=== PATIENT | male | born 1995 | race African-American/Black ===

== ENCOUNTER → 2022-08-20 10:57 | Outpatient (BNVA) | payer OTHER, SELFPAY | PROVIDERS: PCP Family Medicine; Visit Provider Nurse Practitioner Family | DX: R56.9 Unspecified convulsions (principal); F10.10 Alcohol abuse, uncomplicated; F32.A Depression, unspecified; F41.9 Anxiety disorder, unspecified | CPT/HCPCS: 99202 ==

== ENCOUNTER → 2022-10-30 10:34 | Outpatient (BNVA) | payer OTHER, SELFPAY | PROVIDERS: PCP Family Medicine; Visit Provider Nurse Practitioner Family | DX: R56.9 Unspecified convulsions (principal); F41.9 Anxiety disorder, unspecified; F32.A Depression, unspecified; F10.10 Alcohol abuse, uncomplicated | CPT/HCPCS: 99212 ==

== ENCOUNTER 2023-03-02 11:35 | Outpatient (AMB) | payer OTHER, SELFPAY ==
[2023-03-02 11:36] VITALS: BP 142/78; PULSE 68; O2SAT 97; BMI 24.3
--- NOTE | 2023-03-02 11:36 | A.OFFVIS_ITS ---
Intake Vital Signs 03/02/23 11:36 Height 5 ft 9 in Weight 164 lb 4 oz BMI 24.3 BP 142/78 H Blood Pressure Location Rt brachial Position Sitting Pulse 68 Pulse Source Pulse Oximeter Pulse Oximetry (%) 97 Oxygen Delivery Method Room Air Intake Visit Reasons: 4m follow up seizures Intake Note: Pt presents as a f/u for seizures. Pt states he had one seizure since last visit. Peoplesoft Taleo Manager Required: No Allergies No Known Allergies Allergy (Verified 03/02/23 11:41) Medication List - Last Reconciled 03/02/23 by DYLON Guillory aluminum chloride 20% (Drysol Dab-O-Matic) mL topical BEDTIME carbamazepine ER 200 mg PO BID 30 days glycopyrrolate 1 mg PO BID hydroxyzine HCl 25 mg PO TID HPI HPI Comments History of Present Illness Details 27-yr-old male presents for f/u visit. Pt denies any significant interval medical changes. Pt reports he ahs had 1 interval breakthrough seizure. He states this was likely triggered by a bout of taking hard liquor x's a few day and then stopping- in addition to his usual daily intake of 2 24oz bers per day. The seizure was a typical seizure. He is complaint w/ his Tegretol. Last tegretol level was low - , 2. CBC/CMP- wnl. PFSH Family History Father Lymphoma Mother Thyroid disease Social History (Updated 10/30/22 @ 10:39 by Savannah Wing CMA) Alcohol intake: current Alcohol intake frequency: a few times a week Patient Tobacco Use Status: Never used Tobacco Substance Use Type: Marijuana Review of Systems Const All systems reviewed & are unremarkable except as noted in HPI and below Physical Exam Vital Signs: Last Vital Signs Pulse 68 03/02/23 11:36 BP 142/78 H 03/02/23 11:36 Pulse Ox 97 03/02/23 11:36 Oxygen Delivery Method Room Air 03/02/23 11:36 BMI result Body Mass Index 24.3 Const General: cooperative and no acute distress Orientation/consciousness: patient oriented x3 HEENT Head: Yes normocephalic Resp Effort & Inspection: normal respiratory effort and able to speak in complete sentences Neuro General: patient oriented x3, gait normal and CN's II-XI intact bilaterally Cognition (Neuro): normal cognition Motor exam (neuro): 5/5 motor strength present throughout Psych Appearance: grossly normal Mental Status: mental status grossly normal Speech and movement: Normal speech and movement present Affect: normal affect Attitude: cooperative Thought process: Normal thought process present Thought content: Normal thought content present Insight: Good insight present (Psych) Judgement: Good judgement present (Psych) Assessment & Plan Assessment & Plan (1) Seizure: Code(s): R56.9 - Unspecified convulsions (2) Alcohol abuse: Code(s): F10.10 - Alcohol abuse, uncomplicated (3) Anxiety: Code(s): F41.9 - Anxiety disorder, unspecified (4) Depression: Code(s): F32.A - Depression, unspecified Plan Recheck CBC, CMP, tegretol level- upon review- consider increasing Tegretol. For now, continue Tegretol ER 200mg bid. Pt states he will f/u w/ referrals he already has to assist him w/ safe alcohol cessation. Future considerations- Consider [facility]eral [facility]. f/u in 4 months or sooner prn. Coding Level of Care Code Est Pt Level 4 (82293) Diagnoses Seizure R56.9 Alcohol abuse F10.10 Anxiety F41.9 Depression F32.A
== END 2023-03-02 12:11 | disposition home or self-care (01) ==
PROVIDERS: Visit Provider Nurse Practitioner Family
DX: R56.9 Unspecified convulsions (principal); F10.10 Alcohol abuse, uncomplicated; F41.9 Anxiety disorder, unspecified; F32.A Depression, unspecified
CPT/HCPCS: 99214

== ENCOUNTER → 2023-03-02 11:35 | Outpatient (BNVA) | payer OTHER, SELFPAY | PROVIDERS: Visit Provider Nurse Practitioner Family | DX: R56.9 Unspecified convulsions (principal); F32.A Depression, unspecified; F41.9 Anxiety disorder, unspecified | CPT/HCPCS: 99212 ==

== ENCOUNTER 2023-06-10 10:56 | Outpatient (AMB) | payer OTHER, SELFPAY ==
[2023-06-10 11:00] VITALS: BP 124/82; PULSE 66; O2SAT 97; BMI 24.0
--- NOTE | 2023-06-10 11:00 | MHC.OFFVIS ---
Intake Vital Signs 06/10/23 11:00 Height 5 ft 9 in Weight 162 lb 4 oz BMI 24.0 BP 124/82 Blood Pressure Location Rt brachial Position Sitting Pulse 66 Pulse Source Pulse Oximeter Pulse Oximetry (%) 97 Oxygen Delivery Method Room Air Intake Visit Reasons: 3m follow up seizures-LVM Intake Note: Patient presents for 3 month follow up. Patient states I've been having some jitters and tremors I stopped drinking about 3 weeks ago, I'm not sure if that has anything to do with it. Allergies No Known Allergies Allergy (Verified 06/10/23 11:03) Medication List - Last Reconciled 06/10/23 by DYLON Guillory aluminum chloride 20% (Drysol Dab-O-Matic) mL topical BEDTIME carbamazepine ER 200 mg PO BID 30 days glycopyrrolate 1 mg PO BID hydroxyzine HCl 25 mg PO TID HPI HPI Comments History of Present Illness Details 27-yr-old male presents for f/u visit. Pt reports he had an in-pt treatment for alcohol abuse. States while he was intoxicated, he told his mom that he was tired and did not beleive he could live that long. Pt's mother insisted that pt go to tx facility. Pt states he left the treatment center early as he did not care for the environment- states it was loud and people were fighting. He was started on Vivitrol which he states has been helpful, however once eh stopped drinking he did strt to feel more anxiety (which is what caused him to drink in the first palce). He states since being home, he has had one alcohol relapse after a , but notes that the alcohol had no enjoyable effect on him. He does have hydroxyxine and Naltrexone, which helps. He declined to f/u with [facility], but is open to us referring him today to an alternate support program. He denies any interval seizures. He is complaint w/ Tegretol but notes that when he was in-pt, he was given tegretol chewable tabs which he feels he digests better. PFSH Family History Father Lymphoma Mother Thyroid disease Social History Alcohol intake: current Alcohol intake frequency: a few times a week Patient Tobacco Use Status: Never used Tobacco Substance Use Type: Marijuana Review of Systems Const All systems reviewed & are unremarkable except as noted in HPI and below Physical Exam Vital Signs: Last Vital Signs Pulse 66 06/10/23 11:00 BP 124/82 06/10/23 11:00 Pulse Ox 97 06/10/23 11:00 Oxygen Delivery Method Room Air 06/10/23 11:00 BMI result Body Mass Index 24.0 Const General: cooperative and no acute distress Orientation/consciousness: patient oriented x3 HEENT Head: Yes normocephalic Resp Effort & Inspection: normal respiratory effort and able to speak in complete sentences Neuro General: patient oriented x3, gait normal and CN's II-XI intact bilaterally Cognition (Neuro): normal cognition Motor exam (neuro): 5/5 motor strength present throughout Psych Appearance: grossly normal Mental Status: mental status grossly normal Speech and movement: Normal speech and movement present Affect: normal affect Attitude: cooperative Thought process: Normal thought process present Thought content: Normal thought content present Insight: Good insight present (Psych) Judgement: Good judgement present (Psych) Assessment & Plan Assessment & Plan (1) Seizure: Code(s): R56.9 - Unspecified convulsions (2) Alcohol abuse: Code(s): F10.10 - Alcohol abuse, uncomplicated (3) Anxiety: Code(s): F41.9 - Anxiety disorder, unspecified (4) Depression: Code(s): F32.A - Depression, unspecified Plan Check CBC, CMP, tegretol level. Continue Tegretol, however will adjust from ER 200mg ER tablet bid to 2 100mg chewable tabs bid- per pt request. Encouraged continued alcohol cessation and establishing care w/ an addiction support program, which pt is agreeable to. Call placed to Dr Tyrone Jarvis- ? pt could be [facility]- however Dr Jarvis now appears to only offer in-pt services, will initiate referral to [facility] f/u in 4 months or sooner prn. Orders: Referrals Addiction Medicine Referral F10.10 - Alcohol abuse, uncomplicated, F32.A - Depression, unspecified, F41.9 - Anxiety disorder, unspecified, R56.9 - Unspecified convulsions Medications: New naltrexone microspheres ER (Vivitrol) 380 mg IM Q4W naltrexone 50 mg PO DAILY carbamazepine 200 mg (2 x 100 mg) PO Q12H 30 days 120 tabs 6RF Discontinued carbamazepine ER Discontinued Reason: Doctor's Order 200 mg PO BID 30 days 60 tabs 3RF Coding Level of Care Code Est Pt Level 4 (32738) Diagnoses Seizure R56.9 Alcohol abuse F10.10 Anxiety F41.9 Depression F32.A
== END 2023-06-10 11:34 | disposition home or self-care (01) ==
PROVIDERS: PCP Family Medicine; Visit Provider Nurse Practitioner Family
DX: R56.9 Unspecified convulsions (principal); F10.10 Alcohol abuse, uncomplicated; F41.9 Anxiety disorder, unspecified; F32.A Depression, unspecified
CPT/HCPCS: 99214

== ENCOUNTER → 2023-06-10 10:56 | Outpatient (BNVA) | payer OTHER, SELFPAY | PROVIDERS: PCP Family Medicine; Visit Provider Nurse Practitioner Family | DX: R56.9 Unspecified convulsions (principal); F10.10 Alcohol abuse, uncomplicated; F41.9 Anxiety disorder, unspecified; F32.A Depression, unspecified | CPT/HCPCS: 99212 ==

== ENCOUNTER 2023-07-21 09:54 | Outpatient (AMB) | payer OTHER, SELFPAY ==
--- NOTE | 2023-07-21 09:55 | A.OFFVIS_ITS ---
Intake Vital Signs 07/21/23 09:59 BP 126/82 Blood Pressure Location Lt radial Position Sitting Pulse 98 Pulse Source Pulse Oximeter Pulse Oximetry (%) 94 Oxygen Delivery Method Room Air Intake Visit Reasons: MAT Intake Intake Note: the patient presents for a mat intake Consumer Safety Inspector Required: No Allergies No Known Allergies Allergy (Verified 07/21/23 10:03) Medication List - Last Reconciled 07/21/23 by Gayle Hickman CNP aluminum chloride 20% (Drysol Dab-O-Matic) mL topical BEDTIME carbamazepine 200 mg (2 x 100 mg) PO Q12H 30 days glycopyrrolate 1 mg PO BID hydroxyzine HCl 25 mg PO TID naltrexone 50 mg PO DAILY naltrexone microspheres ER (Vivitrol) 380 mg IM Q4W HPI MAT Intake HPI Details Patient presents for intake and evaluation of alcohol use Reports he started drinking at age 18 and it became an issue at 23 Binging, then started to black out ED crisis eval at [facility] and subsequent admission to for a couple of weeks for suicidal ideation Received Vivitrol injection May 21 Last drink Wednesday (4 days ago) 2 russel boyle Treatment History: Vivitrol during admission History: -one admission to unit -PHP during childhood Family Hx: -some family members with AUD Medical History: -alcohol withdrawal seizures [address] recent seizure -Tegretol 200mg BID -Hydroxyzine 25mg TID PRN -Naltrexone 50mg QD Social: Lives with father, step mom and her family Identifies father and mother and siblings as supportive [facility] Family History Father Lymphoma Mother Thyroid disease Social History Alcohol intake: current Alcohol intake frequency: a few times a week Patient Tobacco Use Status: Never used Tobacco Substance Use Type: Marijuana Review of Systems Const Reports as per HPI Psych Reports anxiety and Reports anhedonia Physical Exam Vital Signs: Last Vital Signs Pulse 98 07/21/23 09:59 BP 126/82 07/21/23 09:59 Pulse Ox 94 07/21/23 09:59 Oxygen Delivery Method Room Air 07/21/23 09:59 Const General: cooperative, healthy appearing and anxious Nutritional Appearance: average body habitus Orientation/consciousness: patient oriented x3 Neuro General: patient oriented x3 Assessment & Plan Assessment & Plan (1) Alcohol use disorder, severe, dependence: Code(s): F10.20 - Alcohol dependence, uncomplicated Plan: * vivitrol reordered * continue with naltrexone for now * gabapentin trial Medications: New naltrexone 50 mg PO DAILY 30 tabs 3RF gabapentin 100 mg PO BID 20 caps 0RF naltrexone microspheres ER (Vivitrol) 380 mg IM Q4W 1 ea 5RF Coding Level of Care Code New Pt Level 4 (26800) Diagnoses Alcohol use disorder, severe, dependence F10.20
[2023-07-21 09:59] VITALS: BP 126/82; PULSE 98; O2SAT 94
== END 2023-07-21 11:10 | disposition home or self-care (01) ==
PROVIDERS: PCP Family Medicine; Visit Provider Nurse Practitioner Psychiatric/Mental Health
DX: F10.20 Alcohol dependence, uncomplicated (principal)
CPT/HCPCS: 99204

== ENCOUNTER → 2023-07-21 09:54 | Outpatient (BNVA) | payer OTHER, SELFPAY | PROVIDERS: PCP Family Medicine; Visit Provider Nurse Practitioner Psychiatric/Mental Health | DX: F10.20 Alcohol dependence, uncomplicated (principal) | CPT/HCPCS: 99202 ==

== ENCOUNTER 2023-08-03 10:29 | Outpatient (AMB) | payer OTHER, SELFPAY ==
--- NOTE | 2023-08-03 10:36 | MHC.AM.SUB ---
Intake Vital Signs 08/03/23 10:43 BP 114/70 Blood Pressure Location Lt radial Position Sitting Pulse 52 Pulse Source Pulse Oximeter Pulse Oximetry (%) 99 Oxygen Delivery Method Room Air Intake Visit Reasons: Mendy Inj Intake Note: the patient presents for a mendy inj Jr. Systems Administrator Required: No Allergies No Known Allergies Allergy (Verified 08/03/23 10:44) Do you need a note to return to daycare/school/sports/work: No HPI Mendy Inj HPI Details Jessica presents for AUD treatment follow up and Vivitrol injection Last drink Wednesday, 07/30-2 russel boyle Spreads drink out over several hours no questions related to injection as he has received it before COUNT [facility]CLUD[facility] Family History Father Lymphoma Mother Thyroid disease Social History Alcohol intake: current Alcohol intake frequency: a few times a week Patient Tobacco Use Status: Never used Tobacco Substance Use Type: Marijuana Review of Systems Const Reports as per HPI and Reports no additional complaints Physical Exam Vital Signs: Last Vital Signs Pulse 52 08/03/23 10:43 BP 114/70 08/03/23 10:43 Pulse Ox 99 08/03/23 10:43 Oxygen Delivery Method Room Air 08/03/23 10:43 Const General: cooperative, healthy appearing and anxious Nutritional Appearance: average body habitus Orientation/consciousness: patient oriented x3 Neuro General: patient oriented x3 Office Meds Vivitrol 380 mg intramuscular suspension,extended release Performing Provider: Gayle Hickman CNP Performing Location: [facility] Administered by: Lou Burch RN on 08/03/23 12:04 Dose Route Admin Location Dispensed Lot Number Expiration Date [facility] Washtub Worker Helper 380 mg IM LG 380 mg 2023-3020T 11/06/25 06997-158-77 Envia Lá Comments: Pt tolerated injection well. Educated on S/S of infection. Encouraged to call [facility] with questions/concerns. Assessment & Plan Assessment & Plan (1) Alcohol use disorder, severe, dependence: Code(s): F10.20 - Alcohol dependence, uncomplicated Plan: tolerated injection gabapentin to be inreased Orders: Orders AMB Naltrexone Injection Patient Supplied Today F10.20 - Alcohol dependence, uncomplicated Medications: Changed From gabapentin 100 mg PO BID 20 caps 0RF To gabapentin 100 mg PO TID 90 caps 0RF Coding Level of Care Code Est Pt Level 3 (28853) Diagnoses Alcohol use disorder, severe, dependence F10.20
[2023-08-03 10:43] VITALS: BP 114/70; PULSE 52; O2SAT 99
== END 2023-08-03 11:21 | disposition home or self-care (01) ==
PROVIDERS: PCP Family Medicine; Visit Provider Nurse Practitioner Psychiatric/Mental Health
DX: F10.20 Alcohol dependence, uncomplicated (principal)
CPT/HCPCS: 99213

== ENCOUNTER → 2023-08-03 10:29 | Outpatient (BNVA) | payer OTHER, SELFPAY | PROVIDERS: PCP Family Medicine; Visit Provider Nurse Practitioner Psychiatric/Mental Health | DX: F10.20 Alcohol dependence, uncomplicated (principal); Z79.899 Other long term (current) drug therapy | CPT/HCPCS: 96372; 99212; J2315 ==

== ENCOUNTER 2023-08-31 10:51 | Outpatient (AMB) | payer OTHER, SELFPAY ==
--- NOTE | 2023-08-31 10:54 | AM.OFFVISNUR ---
Intake Vital Signs 08/31/23 11:00 BP 118/70 Blood Pressure Location Lt radial Position Sitting Pulse 98 Pulse Source Pulse Oximeter Pulse Oximetry (%) 98 Oxygen Delivery Method Room Air Intake Visit Reasons: Mendy Inj Intake Note: the patient presents for a mendy inj Bus Transportation Manager Required: No Allergies No Known Allergies Allergy (Verified 08/31/23 11:00) Do you need a note to return to daycare/school/sports/work: No Nursing Note Patient to clinic today for Vivitrol injection. He is in good spirits, smiling, requested LG for injection, states his cravings have subsided and he denies any complications. Patient did tell me he would like to find a therapist or someone to talk to regarding gender dismorphia. I let him know I will get some referrals in and get numbers for him, he was happy about this. Patient understands to call [facility] with any questions or concerns. Office Meds Vivitrol 380 mg intramuscular suspension,extended release Performing Provider: Gayle Hickman CNP Performing Location: [facility] Administered by: Lisette Figueredo RN on 08/31/23 11:23 Dose Route Admin Location Dispensed Lot Number Expiration Date [facility]NOTE 2] Maintenance Aide 380 mg IM LG 380 mg 2023-1025T 12/06/25 [id number] Mpayy Coding Assessment & Plan Assessment & Plan Orders: Orders AMB Naltrexone Injection Patient Supplied Today F10.20 - Alcohol dependence, uncomplicated
[2023-08-31 11:00] VITALS: BP 118/70; PULSE 98; O2SAT 98
== END 2023-08-31 11:22 | disposition home or self-care (01) ==
PROVIDERS: PCP Family Medicine
DX: F10.20 Alcohol dependence, uncomplicated (principal)

== ENCOUNTER → 2023-08-31 10:51 | Outpatient (BNVA) | payer OTHER, SELFPAY | PROVIDERS: PCP Family Medicine | DX: F10.20 Alcohol dependence, uncomplicated (principal) | CPT/HCPCS: 96372; J2315 ==

== ENCOUNTER 2023-09-28 10:53 | Outpatient (AMB) | payer OTHER, SELFPAY ==
[2023-09-28 11:04] VITALS: BP 124/78; PULSE 95; O2SAT 96; BMI 23.9
--- NOTE | 2023-09-28 11:05 | AM.OFFVISNUR ---
Intake Vital Signs 09/28/23 11:04 Height 5 ft 9 in Weight 162 lb BMI 23.9 BP 124/78 Blood Pressure Location Lt radial Position Sitting Pulse 95 Pulse Source Pulse Oximeter Pulse Oximetry (%) 96 Oxygen Delivery Method Room Air Intake Visit Reasons: Mendy Inj Intake Note: the patient presents for a mendy inj Forestry Workers Required: No Allergies No Known Allergies Allergy (Verified 08/31/23 11:00) Do you need a note to return to daycare/school/sports/work: No Nursing Note Patient to office for vivitrol injection, he denies any signs, symptoms or complications from previous injection. States AUD recovery is going well , has not had cravings or drank. Patient was solemn, not smiling, very quiet. Stated that they are still struggling with gender identity, and recently was in their mothers wedding and was extremely anxious about the pictures, due to having to wear a tuxedo. Patient acknowledged having very dark thoughts, and not sleeping recently. They acknowledged safety and denied SI/HI, we talked about calling here and or going to the ER if these thoughts became unsafe and Jose A verbally agreed to doing this. They have an appointment on 09/29 with [facility] to meet with a counsilor, We agreed that I would call and check in periodically this week. Office Meds Vivitrol 380 mg intramuscular suspension,extended release Performing Provider: Gayle Hickman CNP Performing Location: [facility] Administered by: Lisette Figueredo RN on 09/28/23 11:16 Dose Route Admin Location Dispensed Lot Number Expiration Date [facility] Elevator Inspector 380 mg IM LG 380 mg [id number] 08/08/25 [id number] [employer] Comments: Patient tolerated injection well with no stated or noted side effects. Pt verbally agrees to calling [facility] with any questions or concerns. Coding Assessment & Plan Assessment & Plan Orders: Orders AMB Naltrexone Injection Patient Supplied (NC) 09/28/23 F10.20 - Alcohol dependence, uncomplicated
== END 2023-09-28 12:18 | disposition home or self-care (01) ==
PROVIDERS: PCP Family Medicine
DX: F10.20 Alcohol dependence, uncomplicated (principal)

== ENCOUNTER → 2023-09-28 10:53 | Outpatient (BNVA) | payer OTHER, SELFPAY | PROVIDERS: PCP Family Medicine | DX: F10.20 Alcohol dependence, uncomplicated (principal); Z79.899 Other long term (current) drug therapy | CPT/HCPCS: 96372; J2315 ==

== ENCOUNTER 2023-10-06 09:02 | Outpatient (AMB) | payer OTHER, SELFPAY ==
--- NOTE | 2023-10-06 09:03 | MHC.AM.SUB ---
Intake Vital Signs 10/06/23 09:10 BP 128/74 Blood Pressure Location Lt radial Position Sitting Pulse 76 Pulse Source Pulse Oximeter Pulse Oximetry (%) 95 Oxygen Delivery Method Room Air Intake Visit Reasons: MAT Intake Note: the patient presents for a mat visit Career Development Coordinator Required: No Allergies No Known Allergies Allergy (Verified 10/06/23 09:11) Do you need a note to return to daycare/school/sports/work: No HPI MAT HPI Details Patient presents for follow up He reports he has been drinking at least 1 4-loco nightly He denies experiencing withdrawal symptoms Mildy diaphoretic, reports he hasn't eaten today, no tremor noted Reports he has been drinking to quell his anxiety Experiencing some body dysmorphia, stating he does not feel like he is in the right body. He [facility] out to [facility] [place] back in March and May but had not heard back from anyone [facility] Family History Father Lymphoma Mother Thyroid disease Social History Alcohol intake: current Alcohol intake frequency: a few times a week Patient Tobacco Use Status: Never used Tobacco Substance Use Type: Marijuana Review of Systems Const Reports as per HPI Psych Reports anxiety, Reports change in appetite, Reports depression, Denies homicidal ideation and Denies suicidal ideation Physical Exam Vital Signs: Last Vital Signs Pulse 76 10/06/23 09:10 BP 128/74 10/06/23 09:10 Pulse Ox 95 10/06/23 09:10 Oxygen Delivery Method Room Air 10/06/23 09:10 Const General: cooperative, no acute distress and diaphoretic (mild) Resp Effort & Inspection: normal respiratory effort Psych Appearance: grossly normal Mental Status: mental status grossly normal Speech and movement: Normal speech and movement present Affect: Sad affect present and Anxious affect present Attitude: Guarded attititude/behavior present and Avoids eye contact (attititude/behavior) Assessment & Plan Assessment & Plan (1) Alcohol use disorder, severe, dependence: Code(s): F10.20 - Alcohol dependence, uncomplicated Plan: -Plan to obtain LACY to refer patient to [facility] -Discussed self care -Discussed harm reduction -Follow up 1 week Medications: Refilled gabapentin 100 mg PO TID 90 caps 0RF naltrexone 50 mg PO DAILY 30 tabs 3RF naltrexone 50 mg PO DAILY 30 tabs 3RF Coding Level of Care Code Est Pt Level 3 (80975) Diagnoses Alcohol use disorder, severe, dependence F10.20
[2023-10-06 09:10] VITALS: BP 128/74; PULSE 76; O2SAT 95
== END 2023-10-06 09:45 | disposition home or self-care (01) ==
PROVIDERS: PCP Family Medicine; Visit Provider Nurse Practitioner Family
DX: F10.20 Alcohol dependence, uncomplicated (principal)
CPT/HCPCS: 99213

== ENCOUNTER → 2023-10-06 09:02 | Outpatient (BNVA) | payer OTHER, SELFPAY | PROVIDERS: PCP Family Medicine; Visit Provider Nurse Practitioner Family | DX: F10.20 Alcohol dependence, uncomplicated (principal) | CPT/HCPCS: 99212 ==

== ENCOUNTER 2023-10-26 09:48 | Outpatient (AMB) | payer OTHER, SELFPAY ==
--- NOTE | 2023-10-26 09:51 | AM.OFFVISNUR ---
Intake Vital Signs 10/26/23 09:55 BP 102/78 Blood Pressure Location Lt radial Position Sitting Pulse 55 Pulse Source Pulse Oximeter Pulse Oximetry (%) 96 Oxygen Delivery Method Room Air Intake Visit Reasons: MAT visit/ Mendy Inj Intake Note: The patient presents for a mendy inj Director Of Retail Analytics Required: No Allergies No Known Allergies Allergy (Verified 10/26/23 09:56) Do you need a note to return to daycare/school/sports/work: No Nursing Note Patient to clinic for vivitrol injection, smiling today, acknowledges that he is binge drinking again, but states he is excited for an intake at a new therapist office soon. He wants to try a new form of MAT, we talked about oral meds and he is going to go home today and learn more , and let us know at his next visit what he found appealing. Office Meds Vivitrol 380 mg intramuscular suspension,extended release Performing Provider: Gayle Hickman CNP [facility] Administered by: Lisette Figueredo RN on 10/26/23 10:23 Dose Route Admin Location Dispensed Lot Number Expiration Date [facility] Route Driver Salesperson 380 mg IM LG 380 mg 2023-1029T 01/06/25 [id number] [email or web address] Coding Assessment & Plan Assessment & Plan Orders: Orders AMB Naltrexone Injection Patient Supplied (NC) Today F10.20 - Alcohol dependence, uncomplicated
[2023-10-26 09:55] VITALS: BP 102/78; PULSE 55; O2SAT 96
== END 2023-10-26 10:12 | disposition home or self-care (01) ==
PROVIDERS: PCP Family Medicine
DX: F10.20 Alcohol dependence, uncomplicated (principal)

== ENCOUNTER → 2023-10-26 09:48 | Outpatient (BNVA) | payer OTHER, SELFPAY | PROVIDERS: PCP Family Medicine; Visit Provider Nurse Practitioner Psychiatric/Mental Health | DX: F10.20 Alcohol dependence, uncomplicated (principal) | CPT/HCPCS: 96372; J2315 ==

== ENCOUNTER 2023-11-02 10:59 | Outpatient (AMB) | payer OTHER, SELFPAY ==
[2023-11-02 11:04] VITALS: PULSE 63; O2SAT 98; BMI 23.8
--- NOTE | 2023-11-02 11:04 | MHC.OFFVIS ---
Intake Vital Signs 11/02/23 11:04 Height 5 ft 9 in Weight 161 lb BMI 23.8 Pulse 63 Pulse Source Pulse Oximeter Pulse Oximetry (%) 98 Oxygen Delivery Method Room Air Intake Visit Reasons: 4m follow up seizures-Conf Intake Note: Patient presents for 4 month follow up seizures. patient doing pretty well no issues or concerns Allergies No Known Allergies Allergy (Verified 11/02/23 11:06) Medication List - Last Reconciled 11/02/23 by DYLON Guillory aluminum chloride 20% (Drysol Dab-O-Matic) mL topical BEDTIME carbamazepine 200 mg (2 x 100 mg) PO Q12H 30 days gabapentin 100 mg PO TID glycopyrrolate 1 mg PO BID hydroxyzine HCl 25 mg PO TID naltrexone 50 mg PO DAILY naltrexone microspheres ER (Vivitrol) 380 mg IM Q4W HPI HPI Comments History of Present Illness Details 28-yr-old male presents for f/u visit. Pt denies any significant interval medical changes. He started drinking alcohol again- 1-2 cans of 24oz beers per day. States he has been having anxiety as he does not feel comfortable in his body. When more anxious, the anxiety triggers a craving to drink alcohol. He states he has generalized anxiety that fluctuates. He was started on Gabapentin 100mg tid- but this has not helped much. He has tried many meds- including- clonidine, sertraline, bupropion. Overall these have not been effective, rarely has had adverse effect. He is compliant w/ Tegretol. 06/10/23, lab results notable for WBC 2.8 L PFSH Family History Father Lymphoma Mother Thyroid disease Social History Alcohol intake: current Alcohol intake frequency: a few times a week Patient Tobacco Use Status: Never used Tobacco Substance Use Type: Marijuana Physical Exam Vital Signs: Last Vital Signs Pulse 63 11/02/23 11:04 Pulse Ox 98 11/02/23 11:04 Oxygen Delivery Method Room Air 11/02/23 11:04 BMI result Body Mass Index 23.8 Const General: cooperative and no acute distress Orientation/consciousness: patient oriented x3 Resp Effort & Inspection: normal respiratory effort and able to speak in complete sentences Neuro General: patient oriented x3 Cranial nerves: Yes CN's II-XII intact bilaterally Cognition (Neuro): normal cognition Psych Appearance: grossly normal Mental Status: mental status grossly normal Speech and movement: Normal speech and movement present Affect: normal affect Attitude: cooperative Assessment & Plan Assessment & Plan (1) Seizure: Code(s): R56.9 - Unspecified convulsions (2) Alcohol use disorder, severe, dependence: Code(s): F10.20 - Alcohol dependence, uncomplicated (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 Recheck CBC, CMP, tegtretol level. Continue to f/u w/ [facility]. Reviewed that pt's seizures are often provoked d/t starting then stopping alcohol intake. On review of notes today, note is made of pt trying to establish care w/ [facility] for feelings of body dysmorphia. Pt endorses that this is a significant factor in exacerbating his anxiety and thus resuming alcohol intake. We will check to see if [facility] is taking new clients, and if so, will refer pt there. f/u in 4 months or sooner prn. Coding Level of Care Code Est Pt Level 4 (70979) Diagnoses Seizure R56.9 Alcohol use disorder, severe, dependence F10.20 Gender dysphoria in adult F64.0 Chronic benign neutropenia D70.8 Depression F32.A
== END 2023-11-02 11:56 | disposition home or self-care (01) ==
PROVIDERS: PCP Family Medicine; Visit Provider Nurse Practitioner Family
DX: R56.9 Unspecified convulsions (principal); F10.20 Alcohol dependence, uncomplicated; F64.0 Transsexualism; D70.8 Other neutropenia; F32.A Depression, unspecified
CPT/HCPCS: 99214

== ENCOUNTER → 2023-11-02 10:59 | Outpatient (BNVA) | payer OTHER, SELFPAY | PROVIDERS: PCP Family Medicine; Visit Provider Nurse Practitioner Family | DX: R56.9 Unspecified convulsions (principal); F10.20 Alcohol dependence, uncomplicated; F64.0 Transsexualism; D70.8 Other neutropenia; F32.A Depression, unspecified | CPT/HCPCS: 99212 ==

== ENCOUNTER 2023-11-03 10:59 | Outpatient (REF) | payer OTHER, SELFPAY ==
[2023-11-03 13:49] LABS: TSH reflex Free T4 0.52 uIU/mL (0.32-4.0)
== END 2023-11-03 11:00 | disposition home or self-care (01) ==
LOC: HO.LAB 10:59
PROVIDERS: PCP Family Medicine; Visit Provider Nurse Practitioner Family
DX: F41.9 Anxiety disorder, unspecified (principal); F10.20 Alcohol dependence, uncomplicated
CPT/HCPCS: 36415; 84443; 99212

== ENCOUNTER 2023-11-03 10:59 | Outpatient (AMB) | payer OTHER, SELFPAY ==
[2023-11-03 11:05] VITALS: PULSE 77; O2SAT 98
--- NOTE | 2023-11-03 11:05 | MHC.AM.SUB ---
Intake Vital Signs 11/03/23 11:05 Blood Pressure Location Lt brachial Position Sitting Pulse 77 Pulse Source Pulse Oximeter Pulse Oximetry (%) 98 Oxygen Delivery Method Room Air Intake Visit Reasons: MAT Allergies No Known Allergies Allergy (Verified 11/02/23 11:06) HPI MAT HPI Details Pt presents for AUD treatment and follow up Reports he is drinking 1 beer daily Feels anxiety is a big stressor/trigger for him He has been taking the gabapentin 200mg TID and has found it to be slightly helpful He reports his sleep has been poor He is unable to identify triggers for his anxiety PFSH Family History Father Lymphoma Mother Thyroid disease Social History Alcohol intake: current Alcohol intake frequency: a few times a week Patient Tobacco Use Status: Never used Tobacco Substance Use Type: Marijuana Review of Systems Const Reports as per HPI Physical Exam Vital Signs: Last Vital Signs Pulse 77 11/03/23 11:05 Pulse Ox 98 11/03/23 11:05 Oxygen Delivery Method Room Air 11/03/23 11:05 Const General: cooperative and healthy appearing Resp Effort & Inspection: normal respiratory effort Psych Appearance: grossly normal Mental Status: mental status grossly normal Speech and movement: Normal speech and movement present Affect: Sad affect present Attitude: cooperative Thought process: Normal thought process present Thought content: Normal thought content present, suicidality and no homicidality Assessment & Plan Assessment & Plan (1) Alcohol use disorder, severe, dependence: Code(s): F10.20 - Alcohol dependence, uncomplicated Plan: -Startg mirtazapine 7.5 qHS, med education provided. Instructed to d/c med immediately if he has SI or increase in SI thoughts, and to seek higher level of care -Follow up 2 weeks for med review -Check TSH to r/o underlying cause for anxiety Orders: Orders TSH reflex Free T4 Today F41.9 - Anxiety disorder, unspecified Medications: New mirtazapine 7.5 mg PO BEDTIME 7 tabs 0RF Changed From gabapentin 100 mg PO TID 90 caps 0RF To gabapentin 200 mg (2 x 100 mg) PO TID 180 caps 0RF Coding Level of Care Code Est Pt Level 3 (88339) Diagnoses Alcohol use disorder, severe, dependence F10.20
== END 2023-11-03 12:50 | disposition home or self-care (01) ==
PROVIDERS: PCP Family Medicine; Visit Provider Nurse Practitioner Family
DX: F10.20 Alcohol dependence, uncomplicated (principal)
CPT/HCPCS: 99213

== ENCOUNTER 2023-11-24 14:17 | Outpatient (AMB) | payer OTHER, SELFPAY ==
[2023-11-24 14:20] VITALS: BP 142/86; PULSE 98; O2SAT 99
--- NOTE | 2023-11-24 14:20 | MHC.AM.SUB ---
Vital Signs 11/24/23 14:20 BP 142/86 H Blood Pressure Location Lt brachial Position Sitting Pulse 98 Pulse Source Pulse Oximeter Pulse Oximetry (%) 99 Oxygen Delivery Method Room Air Intake Visit Reasons: MAT Allergies No Known Allergies Allergy (Verified 11/24/23 14:21) Medication List - Last Reconciled 11/24/23 by Gayle Hickman CNP carbamazepine 200 mg (2 x 100 mg) PO Q12H 30 days gabapentin 200 mg (2 x 100 mg) PO TID glycopyrrolate 1 mg PO BID mirtazapine 7.5 mg PO BEDTIME naltrexone 50 mg PO DAILY naltrexone microspheres ER (Vivitrol) 380 mg IM Q4W HPI HPI MAT: Details: Patient presents for follow up and med review for depression Seen by Savannah Mathias NP for AUD Started on Mirtazipine at the end of October, but was not able to fill it at pharmacy Gabapentin dose increased to 300mg BID--feels increase has been helpful, but onset of sx relief takes quite some time, but he feels very tired hours after taking it. 1st in AM and right before bed. Racing thoughts, heart palpitations Sleep is poor --frequent wakings Clonidine helpful for sleep in the past Anxiety is chronic daily--since age 17 drinking 1-2 per day Tightness in chest is most upsetting to him PFSH Family History Father Lymphoma Mother Thyroid disease Social History Alcohol intake: current Alcohol intake frequency: a few times a week Patient Tobacco Use Status: Never used Tobacco Substance Use Type: Marijuana Review of Systems Const Reports as per HPI Physical Exam Vital Signs: Last Vital Signs Pulse 98 11/24/23 14:20 BP 142/86 H 11/24/23 14:20 Pulse Ox 99 11/24/23 14:20 Oxygen Delivery Method Room Air 11/24/23 14:20 Const General: cooperative and healthy appearing Resp Effort & Inspection: normal respiratory effort Psych Appearance: grossly normal Mental Status: mental status grossly normal Speech and movement: Normal speech and movement present Affect: Sad affect present Attitude: cooperative Thought process: Normal thought process present Thought content: Normal thought content present Assessment & Plan Assessment & Plan (1) Alcohol use disorder, severe, dependence: Code(s): F10.20 - Alcohol dependence, uncomplicated Category: Medical Plan: -start mirtazipine -provided with breathing excercises to address acute anxiety -follow up 3 weeks
== END 2023-11-24 14:58 | disposition home or self-care (01) ==
PROVIDERS: PCP Family Medicine; Visit Provider Nurse Practitioner Psychiatric/Mental Health
DX: F10.20 Alcohol dependence, uncomplicated (principal)
CPT/HCPCS: 99214

== ENCOUNTER 2023-11-24 14:17 | Outpatient (AMB) | payer OTHER, SELFPAY ==
--- NOTE | 2023-11-24 14:21 | AM.OFFVISNUR ---
Intake Intake Visit Reasons: Mendy Inj Allergies No Known Allergies Allergy (Verified 11/24/23 14:21) Office Meds Vivitrol 380 mg intramuscular suspension,extended release Performing Provider: Gayle Hickman CNP Performing Location: [facility] Administered by: Lisette Figueredo RN on 11/24/23 14:56 Dose Route Admin Location Dispensed Lot Number Expiration Date [facility] Screening Technician 380 mg IM LG 380 mg 2023-1032T 03/08/26 19611-344-62 [employer] Coding Assessment & Plan Assessment & Plan Orders: Orders AMB Naltrexone Injection Patient Supplied (NC) Today F10.20 - Alcohol dependence, uncomplicated Medications: New Vivitrol ER (naltrexone microspheres) 380 mg IM ONCE 1 ea 0RF NS F10.20 - Alcohol dependence, uncomplicated
== END 2023-11-24 14:59 | disposition home or self-care (01) ==
PROVIDERS: PCP Family Medicine
DX: F10.20 Alcohol dependence, uncomplicated (principal)

== ENCOUNTER → 2023-11-24 14:17 | Outpatient (BNVA) | payer OTHER, SELFPAY | PROVIDERS: PCP Family Medicine | DX: F10.20 Alcohol dependence, uncomplicated (principal); Z79.899 Other long term (current) drug therapy | CPT/HCPCS: 96372; 99212; J2315 ==

== ENCOUNTER 2023-12-22 10:59 | Outpatient (AMB) | payer OTHER, SELFPAY ==
[2023-12-22 11:02] VITALS: BP 138/86; PULSE 71; O2SAT 96
--- NOTE | 2023-12-22 11:02 | A.OFFVISCC_ITS ---
Vital Signs 12/22/23 11:02 BP 138/86 Blood Pressure Location Lt brachial Position Sitting Pulse 71 Pulse Source Pulse Oximeter Pulse Oximetry (%) 96 Oxygen Delivery Method Room Air Intake Visit Reasons: MAT Allergies No Known Allergies Allergy (Verified 11/24/23 14:21) HPI HPI MAT: Details: Patient presents for follow up mirtazipine has been helpful to sleep taking it btwn 2-3am still waiting to hear from [facility] -encouraged to call them and follow up Regarding drinkin-2 natty tamar 4 locos last drink last cut gabapentin down to once per day PFSH Family History Father Lymphoma Mother Thyroid disease Social History Alcohol intake: current Alcohol intake frequency: a few times a week Patient Tobacco Use Status: Never used Tobacco Substance Use Type: Marijuana Physical Exam Vital Signs: Last Vital Signs Pulse 71 12/22/23 11:02 BP 138/86 12/22/23 11:02 Pulse Ox 96 12/22/23 11:02 Oxygen Delivery Method Room Air 12/22/23 11:02 Office Meds Vivitrol 380 mg intramuscular suspension,extended release Performing Provider: Gayle Hickman CNP Performing Location: [facility] Administered by: Lisette Figueredo RN on 12/22/23 11:24 Dose Route Admin Location Dispensed Lot Number Expiration Date [facility] Utility Gelatin Maker 380 mg IM LG 380 mg 2023-1033T 03/08/26 84288-471-51 Caregivers Assessment & Plan Assessment & Plan (1) Alcohol use disorder, severe, dependence: Code(s): F10.20 - Alcohol dependence, uncomplicated Category: Medical Plan: * tolerated injection (2) Anxiety: Code(s): F41.9 - Anxiety disorder, unspecified Category: Medical Plan: * start propranolol * start propranolol BID * plan to d/c gabapentin Orders: Orders AMB Naltrexone Injection Patient Supplied (NC) 12/22/23 F10.20 - Alcohol dependence, uncomplicated Medications: New propranolol 10 mg PO BID PRN 30 tabs 0RF anxiety Refilled mirtazapine 7.5 mg PO BEDTIME 30 tabs 0RF Nursing Note Patient in for injection today, no questions or concerns regarding previous injection. Pt agrees to call [facility] with any comments or concerns. Injected into LG with no complications.
== END 2023-12-22 11:22 | disposition home or self-care (01) ==
PROVIDERS: PCP Family Medicine; Visit Provider Nurse Practitioner Psychiatric/Mental Health
DX: F10.20 Alcohol dependence, uncomplicated (principal); F41.9 Anxiety disorder, unspecified
CPT/HCPCS: 99213

== ENCOUNTER → 2023-12-22 10:59 | Outpatient (BNVA) | payer OTHER, SELFPAY | PROVIDERS: PCP Family Medicine; Visit Provider Nurse Practitioner Psychiatric/Mental Health | DX: F10.20 Alcohol dependence, uncomplicated (principal); F41.9 Anxiety disorder, unspecified; Z79.899 Other long term (current) drug therapy | CPT/HCPCS: 96372; 99212; J2315 ==

== ENCOUNTER 2024-01-20 11:15 | Outpatient (AMB) | payer OTHER, SELFPAY ==
--- NOTE | 2024-01-20 11:26 | MHC.AM.SUB ---
Vital Signs 01/20/24 11:29 BP 136/76 Blood Pressure Location Lt brachial Position Sitting Pulse 88 Pulse Source Pulse Oximeter Pulse Oximetry (%) 97 Oxygen Delivery Method Room Air Intake Visit Reasons: Meet w provider/ Mendy Inj Allergies No Known Allergies Allergy (Verified 11/24/23 14:21) HPI HPI Meet w provider/ Emndy Inj: Details: Patient presents for vivitrol injection Reports he is still struggling with his anxiety, cannot identify any triggers Has been drinking 3 russel jean daily Feels as though when he is due to get his next injection, his cravings grow stronger Sleep has been good per his report He reports [employer] has called him but he has no appointments yet HPI Comments Details: Patient presents for MAT visit PFSH Family History Father Lymphoma Mother Thyroid disease Social History Alcohol intake: current Alcohol intake frequency: a few times a week Patient Tobacco Use Status: Never used Tobacco Substance Use Type: Marijuana Review of Systems Const Reports as per HPI Physical Exam Const General: cooperative and no acute distress Resp Effort & Inspection: normal respiratory effort and able to speak in complete sentences Psych Appearance: grossly normal Mental Status: mental status grossly normal Speech and movement: Normal speech and movement present Affect: normal affect Attitude: cooperative Thought process: Normal thought process present Office Meds Vivitrol 380 mg intramuscular suspension,extended release Performing Provider: Savannah Mathias NP Performing Location: [facility] Administered by: Savananh Mathias NP on 01/20/24 11:37 Dose Route Admin Location Dispensed Lot Number Expiration Date [facility] Pasta Maker 380 mg IM RG 380 mg 2023-3027T 01/06/26 11747-210-37 [employer] Comments: Pt tolerating injection well. No signs or symptoms of infection to previous site. Assessment & Plan Assessment & Plan (1) Alcohol use disorder, severe, dependence: Code(s): F10.20 - Alcohol dependence, uncomplicated Category: Medical Plan: -Propanolol refilled per pt request -Naltrexone refilled, encouraged patient to take 1/2 tab daily in the week leading up to his next injection -Follow up 4 weeks Orders: Orders AMB Naltrexone Injection Patient Supplied (NC) Today F10.20 - Alcohol dependence, uncomplicated Medications: New Vivitrol ER (naltrexone microspheres) 380 mg IM ONCE 1 ea 0RF NS F10.20 - Alcohol dependence, uncomplicated Refilled naltrexone 50 mg PO DAILY 30 tabs 0RF propranolol 10 mg PO BID PRN 60 tabs 0RF anxiety
[2024-01-20 11:29] VITALS: BP 136/76; PULSE 88; O2SAT 97
== END 2024-01-20 11:41 | disposition home or self-care (01) ==
PROVIDERS: PCP Family Medicine; Visit Provider Nurse Practitioner Family
DX: F10.20 Alcohol dependence, uncomplicated (principal)
CPT/HCPCS: 99213

== ENCOUNTER → 2024-01-20 11:15 | Outpatient (BNVA) | payer OTHER, SELFPAY | PROVIDERS: PCP Family Medicine; Visit Provider Nurse Practitioner Family | DX: F10.20 Alcohol dependence, uncomplicated (principal); Z79.899 Other long term (current) drug therapy | CPT/HCPCS: 96372; 99212; J2315 ==

== ENCOUNTER 2024-02-22 10:59 | Outpatient (AMB) | payer OTHER, SELFPAY ==
--- NOTE | 2024-02-22 10:59 | AM.OFFVISNUR ---
Intake Visit Reasons: Vivitrol Allergies No Known Allergies Allergy (Verified 11/24/23 14:21) Nursing Note Patient to clinic today for Vivitrol injection. Alert and oriented x4, denies any complications with previous injection, injection today given per orders in the RG. Will follow up in 4 weeks with RN and provider. Patient was in much better spirits today, big smile, still has yet to complete intake at [facility] but states he will keep trying. Office Meds Vivitrol 380 mg intramuscular suspension,extended release Performing Provider: Gayle Hickman CNP Performing Location: [facility] Administered by: Lisette Figueredo RN on 02/22/24 11:30 Dose Route Admin Location Dispensed Lot Number Expiration Date [facility] Medical Instrument Technician 380 mg IM RG 380 mg 2023-3033T 03/08/26 94532-487-91 [employer] Assessment & Plan Assessment & Plan Orders: Orders AMB Naltrexone Injection Patient Supplied (NC) Today F10.20 - Alcohol dependence, uncomplicated Medications: New Vivitrol ER (naltrexone microspheres) 380 mg IM ONCE 1 ea 0RF NS F10.20 - Alcohol dependence, uncomplicated
== END 2024-02-22 11:24 | disposition home or self-care (01) ==
PROVIDERS: PCP Family Medicine
DX: F10.20 Alcohol dependence, uncomplicated (principal)

== ENCOUNTER → 2024-02-22 10:59 | Outpatient (BNVA) | payer OTHER, SELFPAY | PROVIDERS: PCP Family Medicine | DX: F10.20 Alcohol dependence, uncomplicated (principal); Z79.899 Other long term (current) drug therapy | CPT/HCPCS: 96372; J2315 ==

== ENCOUNTER 2024-03-22 11:40 | Outpatient (AMB) | payer OTHER, SELFPAY ==
--- NOTE | 2024-03-22 11:45 | MHC.AM.SUB ---
Intake Visit Reasons: MAT/Vivitrol Allergies No Known Allergies Allergy (Verified 11/24/23 14:21) HPI HPI MAT/Vivitrol: Details: Patient presents for follow up and injection when he has more than 3 of the Natty daddys he has nausea Happens when he goes to his sisters house on weekends discussed strategies for addressing this pina in light of GI sx found propranolol helpful, would like to increase dose PFSH Family History Father Lymphoma Mother Thyroid disease Social History Alcohol intake: current Alcohol intake frequency: a few times a week Patient Tobacco Use Status: Never used Tobacco Substance Use Type: Marijuana Review of Systems Const Reports as per HPI and Reports no additional complaints Physical Exam Const General: cooperative and no acute distress Psych Appearance: grossly normal Mental Status: mental status grossly normal Speech and movement: Normal speech and movement present Affect: normal affect Attitude: cooperative Thought process: Normal thought process present Office Meds Vivitrol 380 mg intramuscular suspension,extended release Performing Provider: Gyale Hickman CNP Performing Location: [facility] Administered by: Lisette Figueredo RN on 03/22/24 14:29 Dose Route Admin Location Dispensed Lot Number Expiration Date [facility] Proof Load Mechanic 380 mg IM LG 380 mg 2024-1010T 07/08/26 03141-739-27 [employer] Assessment & Plan Assessment & Plan (1) Alcohol use disorder, severe, dependence: Code(s): F10.20 - Alcohol dependence, uncomplicated Category: Medical Plan: tolerated injection follow up 4 weeks propranolol increased to 20mg BID Orders: Orders AMB Naltrexone Injection Patient Supplied (NC) 03/22/24 F10.20 - Alcohol dependence, uncomplicated Medications: New propranolol 20 mg PO BID 180 tabs 0RF 90 days Discontinued gabapentin Discontinued Reason: Doctor's Order 200 mg (2 x 100 mg) PO TID 180 caps 0RF propranolol Discontinued Reason: Doctor's Order 10 mg PO BID PRN 60 tabs 0RF anxiety
== END 2024-03-22 14:02 | disposition home or self-care (01) ==
PROVIDERS: PCP Family Medicine; Visit Provider Nurse Practitioner Psychiatric/Mental Health
DX: F10.20 Alcohol dependence, uncomplicated (principal)
CPT/HCPCS: 99214

== ENCOUNTER → 2024-03-22 11:40 | Outpatient (BNVA) | payer OTHER, SELFPAY | PROVIDERS: PCP Family Medicine; Visit Provider Nurse Practitioner Psychiatric/Mental Health | DX: F10.20 Alcohol dependence, uncomplicated (principal); Z51.81 Encounter for therapeutic drug level monitoring; Z79.899 Other long term (current) drug therapy | CPT/HCPCS: 96372; 99212; J2315 ==

== ENCOUNTER 2024-04-04 11:31 | Outpatient (AMB) | payer OTHER, SELFPAY ==
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
[2024-04-04 11:50] VITALS: BP 122/78; PULSE 80; O2SAT 97; BMI 22.7
== END 2024-04-04 12:42 | disposition home or self-care (01) ==
PROVIDERS: PCP Family Medicine; Visit Provider Nurse Practitioner Family
DX: R56.9 Unspecified convulsions (principal); F10.20 Alcohol dependence, uncomplicated; F64.0 Transsexualism
CPT/HCPCS: 99214

== ENCOUNTER → 2024-04-04 11:31 | Outpatient (BNVA) | payer OTHER, SELFPAY | PROVIDERS: PCP Family Medicine; Visit Provider Nurse Practitioner Family | DX: G40.909 Epilepsy, unspecified, not intractable, without status epilepticus (principal); F10.20 Alcohol dependence, uncomplicated; F64.0 Transsexualism | CPT/HCPCS: 99212 ==

== ENCOUNTER 2024-04-04 12:46 | Outpatient (REF) | payer OTHER, SELFPAY ==
[2024-04-04 17:37] LABS: MANUAL DIFF FLAG NO
[2024-04-04 18:12] LABS: Basophils Percent Auto 0.9 % (0-2); Eosinophils Absolute Auto 0.2 X10*3/uL (0.0-0.4); Eosinophils Percent Auto 6.6 % (0-4); Hematocrit 41.3 % (42.0-52.0); Hemoglobin 14.4 g/dl (14.0-18.0); Imm Gran Abs Auto 0.01 X10*3/uL (0.00-0.03); Imm Gran Pct Auto 0.3 % (0.0-0.4); Lymphocytes Absolute Auto 1.1 X10*3/uL (1.2-4.9); Lymphocytes Percent Auto 32.2 % (20-40); Mean Corpuscular HGB Conc 34.9 g/dl (31.0-36.0); Mean Corpuscular Hemoglobin 32.8 pg (27.0-33.0); Mean Corpuscular Volume 94.1 fL (80.0-98.0); Mean Platelet Volume 10.7 fL (9.4-12.4); Monocytes Absolute Auto 0.5 X10*3/uL (0.1-1.2); Monocytes Percent Auto 13.8 % (2-11); Neutrophils Absolute Auto 1.6 x10*3/uL (2.0-8.3); Neutrophils Percent Auto 46.2 % (45-73); Platelet Count 267 X10*3/uL (160-400); Red Blood Count 4.39 X10*6/uL (4.60-5.80); Red Cell Distribution Width 11.7 % (11.0-16.0); White Blood Count 3.5 X10*3/uL (4.8-10.8)
[2024-04-04 18:19] LABS: Alanine Aminotransferase 24 U/L (0-40); Alkaline Phosphatase 62 U/L (39-117); Anion Gap 15 (12-20); Aspartate Amino Transferase 35 U/L (5-37); Blood Urea Nitrogen 14 mg/dL (9-16); Calcium 9.9 mg/dL (8.4-10.2); Carbon Dioxide 24 mmol/L (22-29); Chloride 103 mmol/L (96-108); Estimated Glomerular Filt Rate > 60; Glucose Random 104 mg/dL (60-115); Potassium 4.4 mmol/L (3.3-5.1); Sodium 138 mmol/L (135-145)
[2024-04-04 19:53] LABS: Carbamazepine Tegretol < 2.0 mcg/mL (5.0-12.0)
== END 2024-04-04 12:47 | disposition home or self-care (01) ==
LOC: HO.HKASLDS 12:46
PROVIDERS: Visit Provider Nurse Practitioner Family
DX: G40.909 Epilepsy, unspecified, not intractable, without status epilepticus (principal)
CPT/HCPCS: 36415; 80053; 80156; 85025

== ENCOUNTER 2024-04-21 10:54 | Outpatient (AMB) | payer OTHER, SELFPAY ==
--- NOTE | 2024-04-21 11:30 | MHC.AM.SUB ---
Vital Signs 04/21/24 13:57 BP 120/78 Blood Pressure Location Rt brachial Position Sitting Pulse 58 Pulse Source Pulse Oximeter Intake Visit Reasons: MAT/Vivitrol Allergies No Known Allergies Allergy (Verified 04/04/24 11:51) HPI HPI MAT/Vivitrol: Details: Patient presents for follow up and vivitrol injection Reports no change in alcohol intake. Anxiety improving with propranolol increase --he takes full dose at once, not BID and finds it helpful sharing struggles with facial hair and how unhappy he is that it is growing in briefly discussed hesitation related to seeking supports around this --he identified anxiety as the main issue and barrier to calling or following up [facility] Family History Father Lymphoma Mother Thyroid disease Social History Alcohol intake: current Alcohol intake frequency: a few times a week Patient Tobacco Use Status: Never used Tobacco Substance Use Type: Marijuana Review of Systems Const Reports as per HPI Physical Exam Vital Signs: Last Vital Signs Pulse 58 04/21/24 13:57 BP 120/78 04/21/24 13:57 Const General: cooperative and no acute distress Psych Appearance: grossly normal Mental Status: mental status grossly normal Speech and movement: Normal speech and movement present Affect: normal affect Attitude: cooperative Thought process: Normal thought process present Office Meds Vivitrol 380 mg intramuscular suspension,extended release Performing Provider: Gayle Hickman CNP Performing Location: [facility] Administered by: Noemí Ventura on 04/21/24 11:31 Dose Route Admin Location Dispensed Lot Number Expiration Date [facility] Marker Machine 380 mg IM RG 380 mg 2024-1019T 09/08/26 16466-177-56 [employer] Comments: Pt tolerated injection well. Educated on signs/symptoms of infection. Encouraged to call the [facility] with any questions or concerns. Assessment & Plan Assessment & Plan (1) Alcohol use disorder, severe, dependence: Code(s): F10.20 - Alcohol dependence, uncomplicated Category: Medical Plan: tolerated injection follow up 4 weeks continue propranolol risk reduction discussion Orders: Orders AMB Naltrexone Injection Patient Supplied (NC) Today F10.20 - Alcohol dependence, uncomplicated
[2024-04-21 13:57] VITALS: BP 120/78; PULSE 58
== END 2024-04-21 11:32 | disposition home or self-care (01) ==
PROVIDERS: PCP Family Medicine; Visit Provider Nurse Practitioner Psychiatric/Mental Health
DX: F10.20 Alcohol dependence, uncomplicated (principal)
CPT/HCPCS: 99214

== ENCOUNTER → 2024-04-21 10:54 | Outpatient (BNVA) | payer OTHER, SELFPAY | PROVIDERS: PCP Family Medicine | DX: F10.20 Alcohol dependence, uncomplicated (principal); Z51.81 Encounter for therapeutic drug level monitoring; Z79.899 Other long term (current) drug therapy | CPT/HCPCS: 96372; 99212; J2315 ==

== ENCOUNTER 2024-05-19 10:59 | Outpatient (AMB) | payer OTHER, SELFPAY ==
--- NOTE | 2024-05-19 11:08 | AM.OFFVISNUR ---
Intake Visit Reasons: Vivitrol Allergies No Known Allergies Allergy (Verified 04/04/24 11:51) Nursing Note Patient presents for Vivitrol injection. Current dose 380 mg. No issues with previous injection.? Denies withdrawal sx prior to next injection.? Last appt with provider April 2024. Next appt with Provider should be July 2024.? Next injection due in 4 weeks Dose due 380 mg. 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 Pt reports this past month has been a little depressing due to growing more facial hair which is unwanted. Pt reports currently still on the waitlist for gender-affirming care in [place]. Pt reports currently drinking 1-2 24 ounce beers daily (8% alcohol). Pt reports they are typically consumed in the afternoon due to beginning to feel withdrawal symptoms (increased anxiety, heart racing ). When asked how pt feels about alochol use, pt states I'm not quite sure. Pt encouraged to call the [facility] if needed at any time for support or questions. Denies questions or concerns at this time. Office Meds Vivitrol 380 mg intramuscular suspension,extended release Performing Provider: Gayle Hickman CNP Performing Location: [facility] Administered by: Noemí Ventura on 05/19/24 11:10 Dose Route Admin Location Dispensed Lot Number Expiration Date [facility] [employer] 380 mg IM LG 380 mg [id number] 12/06/26 03329-731-94 [employer] Comments: Pt tolerated injection well. Educated on signs/symptoms of infection, encouraged to call the [facility] with questions or concerns. Assessment & Plan Assessment & Plan Orders: Orders AMB Naltrexone Injection Patient Supplied (NC) Today F10.20 - Alcohol dependence, uncomplicated
== END 2024-05-19 13:07 | disposition home or self-care (01) ==
PROVIDERS: PCP Family Medicine
DX: F10.20 Alcohol dependence, uncomplicated (principal)

== ENCOUNTER → 2024-05-19 10:59 | Outpatient (BNVA) | payer OTHER, SELFPAY | PROVIDERS: PCP Family Medicine | DX: F10.20 Alcohol dependence, uncomplicated (principal); Z79.899 Other long term (current) drug therapy | CPT/HCPCS: 96372; J2315 ==

== ENCOUNTER 2024-06-27 10:53 | Outpatient (AMB) | payer OTHER, SELFPAY ==
--- NOTE | 2024-06-27 11:37 | AM.OFFVISNUR ---
Intake Visit Reasons: vivitrol Allergies No Known Allergies Allergy (Verified 04/04/24 11:51) Nursing Note Patient Presents for vivitrol Injection. Current Dose 380mg. Given in the with LG no noted or stated complications. Denies any issues with previous injection. Denies symptoms, and denies any break through cravings. Will follow up with RN in 4 weeks for injection. Will need to see provider for check in July . Office Meds Vivitrol 380 mg intramuscular suspension,extended release Performing Provider: Gayle Hickman CNP Performing Location: [facility] Administered by: Lisette Figueredo RN on 06/29/24 11:53 Dose Route Admin Location Dispensed Lot Number Expiration Date [facility] Automobile Upholsterer Apprentice 380 mg IM LG 380 mg 2024-1021T 11/06/26 26840-546-10 [employer] Assessment & Plan Assessment & Plan Orders: Orders AMB Naltrexone Injection Patient Supplied (NC) 06/27/24 F10.20 - Alcohol dependence, uncomplicated Medications: New Vivitrol ER (naltrexone microspheres) 380 mg IM ONCE 1 ea 0RF NS F10.20 - Alcohol dependence, uncomplicated
--- OUTSIDE RECORDS SUMMARY | 2024-06-30 13:28 | XMS_ITS | Continuity of Care Document ---
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 Active Insomnia Confirmed Active Episodic mood disorder Confirmed Active Vital Signs Most recent to oldest [Reference Range]: 1 2 Height 190 cm (12/17/23 2:49 PM) 190 cm (12/17/23 1:55 PM) Weight 90.9 kg (12/17/23 2:49 PM) 90.9 kg (12/17/23 1:55 PM) Oxygen Saturation [94-100 %] 98 % (12/17/23 2:49 PM) 98 % (12/17/23 1:55 PM) Pulse Rate [55-90 bpm] 73 bpm (12/17/23 2:49 PM) 87 bpm (12/17/23 1:55 PM) Body Mass Index [18.5-24.99 kg/m2] 25.18 kg/m2 *H* (12/17/23 2:49 PM) Blood Pressure [90-138/55-84 mm Hg] 129/ 72mm Hg (12/17/23 2:49 PM) 122/49mm Hg (12/17/23 1:55 PM) Respiratory Rate [16-30 br/min] 18 br/mi n (12/17/23 2:49 PM) 16 br/min (12/17/23 1:55 PM) Temperature [96.8-100.4 DegF] 98.8 DegF (12/17/23 1:55 PM) Mode of Delivery (Oxygen) Room air (12/17/23 2:49 PM) Room air (12/17/23 1:55 PM) Blood pressure sites Arm, left (12/17/23 2:49 PM) Arm, left (12/17/23 1:55 PM) Temperature Route Oral (12/17/23 1:55 PM) Dry Weight 90.9 kg (12/17/23 2:49 PM) 90.9 kg (12/17/23 1:55 PM) Weight Obtained Via Standing scale (12/17/23 1:55 PM) Dry Weight Obtained Via Standing scale (12/17/23 1:55 PM) Social History Social History Type Response Smoking Status Never smoker; Tobacc o user in household: No entered on: 05/03/15 Sex Patient Care team information Care Team Personnel Name: Vianey Ritchie MA Position: [facility] RN Member Role: Primary Care Nurse Name: Not on Staff, PCP Position: [facility] Physician (General Medicine) Member Role: PCP Care Team Related Persons Name: RAOARIELLA Address: [address] [place] [address] Name: RAO LAURI Address: home [address] [place] [address]
--- OUTSIDE RECORDS SUMMARY | 2024-06-30 13:28 | XMS_ITS | Continuity of Care Document ---
Author Organization [facility] Address [address] [place] [address]- Care Team Providers Care Steel Checker Name Role Phone Not on Staff, PCP Primary Care Physician Unavail able Encounter [facility] Date(s): 12/09/23 - 12/09/[address] [address]- Discharge Disposition: A-D/C Home Attending Physician: Geoff Cheung MD Admitting Physician: Geoff Cheung MD Referring Physician: Not on Staff, Referring MD Allergies, Adverse Reactions, Alerts No Known Allergies Medications No Known Medications Problem List Condition Confirmation Course Effective Dates Status H ealth Status Informant Attention Deficit Disorder of 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 Reports swelling and pain with ambulation.; Reason: Pain; Clinical Question(s): Fracture COMPARISON: None. FINDINGS: No evidence of acute or healing fracture or bone lesion. Intact ankle mortise and talar dome. No arthritic changes. Lateral soft tissue swelling. IMPRESSION: No osseous or joint space abnormality. Lateral soft tissue swelling consistent with contusion or sprain. WSN: [id number] Ordering Physician: Ramiro De La Garza Dictated By: Damian Beebe MD Dictated Date/Time: 12/09/23 6:09 pm Reviewed By: Damian Beebe MD Signed By: Damian Beebe MD Signed Date/Time: 12/09/23 6:09 pm Transcribed By: AKUA Transcribed Date/Time: 12/09/23 6:09 pm Vital Signs Most recent to oldest [Reference Range]: 1 2 Height 190 cm (12/09/23 5:21 PM) Weight 89.8 kg (12/09/23 5:21 PM) Oxygen Saturation [94-100 %] 98 % (12/09/23 5:21 PM) 98 % (12/09/23 5:21 PM) Pulse Rate [55-90 bpm] 83 bpm (12/09/23 5:21 PM) 68 bpm (12/09/23 5:21 PM) Blood Pressure [90-138/55-84 mm Hg] 130/ 69mm Hg (12/09/23 5:21 PM) Respiratory Rate [16-30 br/min] 18 br/mi n (12/09/23 5:21 PM) Temperature [96.8-100.4 DegF] 98.0 DegF (12/09/23 5:21 PM) Mode of Delivery (Oxygen) Room air (12/09/23 5:21 PM) Room air (12/09/23 5:21 PM) Blood pressure sites Arm, left (12/09/23 5:21 PM) Temperature Route Temporal (12/09/23 5:21 PM) Dry Weight 89.8 kg (12/09/23 5:21 PM) Weight Obtained Via Standing scale (12/09/23 5:21 PM) Dry Weight Obtained Via Standing scale (12/09/23 5:21 PM) Social History Social History Type Response Smoking Status Never smoker; Tobacc o user in household: No entered on: 05/03/15 Sex Note * Mary Alfonso: PERFORM, SIGN, VERIFY Event Display: Patient Education Handout Authored Date: [id number] * Mary Alfonso: PERFORM Event Display: Patient Education Leaflets Authored Date: [id number] Ankle Sprain (Adult) ?? [id number] Ankle Sprain (Adult) An ankle sprain is a stretching or tearing of the ligaments that hold the ankle joint together. There are no broken bones. An ankle sprain is a common injury for both children and adults. It happens when the ankle turns, twists, or rolls in an awkward way. This can be caused by a sports injury. Or it can happen from doing something as simple as stepping on an uneven surface. Ligaments are made of tough connective tissue. Normally, ligaments stretch a certain amount and then go back to their normal place. A sprain happens when a ligament is forced to stretch more than thenormal amount. A severe sprain can actually tear the ligaments. If you have a severe sprain, you may have felt or heard something like a pop when you were injured. Ankle sprains are given a grade depending on whether they are mild, moderate, or severe: ??? Grade 1 sprain. A mild sprain with minor stretching and damage to the ligament. ??? Grade 2 sprain. A moderate sprain where the ligament is partly torn. ??? Grade 3 sprain. The most severe kind of sprain. The ligament is completely torn. Most sprains??take about 4 to 6 weeks to heal. A severe sprain can take several months to recover. Your healthcare provider may order X-rays to be sure you don???t have a fracture, or broken bone. The injured area will feel sore. Swelling and pain may make it hard to walk. You may need crutches if walking is painful. Or your provider may have you use a cast boot or air splint. This will dependon the grade of ankle sprain that you have. Home care ??? For a Grade 1 sprain, use RICE (rest, ice, compression, and elevation): ??? Rest your ankle. Don???t walk on it. ??? Ice should be used right away to help control swelling. Place an ice pack overthe injured area for 20 minutes. Do this every??3 to 6??hours??for the first??24 to 48 hours.??Keepusing ice packs to ease pain and swelling as needed. To make an ice pack, put ice cubes in a plastic??bag that seals at the top. Wrap the bag in a??clean, thin??towel or cloth. Never put ice or an ice pack directly on the skin. The ice pack can be put right on the cast, bandage, or splint. As the ice melts, be careful that the cast, bandage, or splint doesn???t get wet. If you have a boot, open it to apply an ice pack, unless told otherwise by your provider. ??? Compression devices help to control swelling. They also keep the ankle from moving and support your injured ankle. These devices include dressings, elastic bandages, and wraps. ??? Elevate or raise your ankle above the level of yourheart when sitting or lying down. This is very important for the first 48 hours. ??? Follow the RICE guidelines for a Grade 2 sprain. This type of sprain will take longer to heal. Your provider may have you wear a splint, cast, or brace to keep your ankle from moving. ?If you have a Grade 3 sprain, you are at risk for long-term ankle instability. In rare cases, surgery may be needed. Your provider may have you wear a short leg cast or a walking boot for 2 to 3 weeks. ??? After 48 hours, it may be helpful to apply heat??for 20 minutes several times a day. You can do this with a heating pad or warm compress. Or you may want to go back and forth between using ice and heat. Never apply heat directly to the skin. Always wrap the heating pad or warm compress in a clean, thin towel or cloth. ??? You may use??[id number] pain medicine??(NSAIDS or nonsteroidal anti-inflammatory drugs) to control pain, unless another pain medicine was prescribed. Talk with your provider before using these medicines if you have chronic liver or kidney disease, stomach ulcer or gastrointestinal bleeding, or if you take a blood thinner. ??? Follow any rehabilitation exercises your provider gives you.These can help you be more flexible and improve your balance and coordination. This is helpful in preventing long-term ankle problems. Prevention To help prevent ankle sprains, it???s important to have good strength, balance, and flexibility. Besure to: ??? Always warm up before you exercise or do something very active ??? Be careful when walking or running on uneven or cracked surfaces ??? Wear shoes that are in good condition and fit well??? Listen to your body???s signals to slow down when you are in pain or tired ?? Follow-up care Any X-rays you had today don???t show any broken bones, breaks, or fractures. Sometimes fractures don???t show up on the first X-ray. Bruises and sprains can sometimes hurt as much as a fracture. These injuries can take time to heal completely. If your symptoms don???t get better or they get worse,talk with your healthcare provider. You may need a repeat X-ray. Follow up with your healthcare provider, or as advised. Check for any warning signs listed below. ?? When to get medical advice Call your healthcare provider right away??if any of these occur: ??? Fever of 100.4 F (38 C) or higher, or as directed by your provider ??? Chills ??? The injury doesn???t seem to be healing ??? The swelling comes back ??? The cast or splint has a bad smell ??? The plaster cast or splint gets wet or soft ??? The fiberglass cast or splint gets wet and doesn't dry for 24 hours ??? Pain or swelling gets worse, or redness appears ??? Your toes become cold, blue, numb, or tingly ??? The skin is discolored (looks blue, purple, or pimentel), has blisters, or is irritated ??? You re-injure your ankle ?? Last Reviewed Date: 2021 ?? [id number] [employer]. All rights reserved. This information is not intended as a substitute for professional medical care. Always follow your healthcare professional's instructions. ?? Patient Care team information Care Team Personnel Name: Vianey Ritchie MA Position: [facility] RN Member Role: Primary Care Nurse Name: Not on Staff, PCP Position: [facility] Physician (General Medicine) Member Role: PCP Care Team Related Persons Name: RAOARIELLA Address: home [address] [place] [address] Name: LAURI YEH Address: [address] [place] [address]
== END 2024-06-27 11:18 | disposition home or self-care (01) ==
LOC: HO.HCC 10:53
PROVIDERS: PCP Family Medicine; Visit Provider Nurse Practitioner Psychiatric/Mental Health
DX: F10.20 Alcohol dependence, uncomplicated (principal)

== ENCOUNTER → 2024-06-27 10:53 | Outpatient (BNVA) | payer OTHER, SELFPAY | PROVIDERS: PCP Family Medicine; Visit Provider Nurse Practitioner Psychiatric/Mental Health | DX: F10.20 Alcohol dependence, uncomplicated (principal) | CPT/HCPCS: 96372; J2315 ==

== ENCOUNTER 2024-11-20 11:15 | Outpatient (AMB) | payer OTHER, SELFPAY ==
--- NOTE | 2024-11-20 11:21 | MHC.OFFVIS ---
Vital Signs 11/20/24 11:26 Height 5 ft 9 in Weight 159 lb BMI 23.5 Pulse 72 Pulse Source Pulse Oximeter Pulse Oximetry (%) 97 Oxygen Delivery Method Room Air Intake Visit Reasons: MAT restart Allergies No Known Allergies Allergy (Verified 11/20/24 11:26) HPI HPI MAT restart: Details: He has been doing well on Vivitrol. He has not been drinking alcohol. Luer lock kept turning on syringe. PFSH Family History Father Lymphoma Mother Thyroid disease Social History Alcohol intake: current Alcohol intake frequency: a few times a week Patient Tobacco Use Status: Never used Tobacco Substance Use Type: Marijuana Review of Systems Const All systems reviewed & are unremarkable except as noted in HPI and below Physical Exam Vital Signs: Last Vital Signs Pulse 72 11/20/24 11:26 Pulse Ox 97 11/20/24 11:26 Oxygen Delivery Method Room Air 11/20/24 11:26 BMI result Body Mass Index 23.5 Const General: cooperative Office Meds Vivitrol 380 mg intramuscular suspension,extended release Performing Provider: Tuyet Diana MD Performing Location: [facility] Administered by: Tuyet Diana MD on 11/20/24 14:13 Dose Route Admin Location Dispensed Lot Number Expiration Date [facility] [employer] 380 mg IM left buttock 380 mg [id number] 02/05/27 25927-139-16 [employer] Results AMB 14 Panel Urine Drug Screen Urine Marijuana (THC) Positive Last Edit by Vinny Osorio CMA on 11/20/24 11:32 Urine Cocaine Negative Last Edit by Vinny Osorio CMA on 11/20/24 11:32 Urine Morphine Negative Last Edit by Vinny Osorio CMA on 11/20/24 11:32 Urine Methamphetamine Negative Last Edit by Vinny Osorio CMA on 11/20/24 11:32 Urine Amphetamine Negative Last Edit by Vinny Osorio CMA on 11/20/24 11:32 Urine Benzodiazepine Negative Last Edit by Vinny Osorio CMA on 11/20/24 11:32 Urine Barbiturates Negative Last Edit by Vinny Osorio CMA on 11/20/24 11:32 Urine Methadone Negative Last Edit by Vinny Osorio CMA on 11/20/24 11:32 Urine Buprenorphine Negative Last Edit by Vinny Osorio CMA on 11/20/24 11:32 Urine Tricyclic Antidepressant Negative Last Edit by Vinny Osorio CMA on 11/20/24 11:32 Urine MDMA Negative Last Edit by Vinny Osorio CMA on 11/20/24 11:32 Urine Oxycodone Negative Last Edit by Vinny Osorio CMA on 11/20/24 11:32 Urine Phencyclidine Negative Last Edit by Vinny Osorio CMA on 11/20/24 11:32 Urine Propoxyphene Negative Last Edit by Vinny Osorio CMA on 11/20/24 11:32 Results Reviewed Results Reviewed: Laboratory Last Values POC Urine Buprenorphine Negative 11/20/24 11:27 POC Urine Morphine Negative 11/20/24 11:27 POC Urine Oxycodone Negative 11/20/24 11:27 POC Urine Methadone Negative 11/20/24 11:27 POC Urine Propoxyphene Negative 11/20/24 11:27 POC Urine Barbiturates Negative 11/20/24 11:27 POC U Tricyclic Antidpr Negative 11/20/24 11:27 POC Urine PCP Negative 11/20/24 11:27 POC Ur Amphetamines Negative 11/20/24 11:27 POC Ur Methamphetamine Negative 11/20/24 11:27 POC Urine MDMA Negative 11/20/24 11:27 POC Ur Benzodiazepine Negative 11/20/24 11:27 POC Urine Cocaine Negative 11/20/24 11:27 POC Ur Marijuana (THC) Positive 11/20/24 11:27 Assessment & Plan Assessment & Plan (1) Alcohol use disorder, severe, dependence: Code(s): F10.20 - Alcohol dependence, uncomplicated Category: Medical Plan: He is doing well Plan Continue Vivitrol. See in one month Orders: Orders AMB 14 Panel Urine Drug Screen Today Z51.81 - Encounter for therapeutic drug level monitoring AMB Naltrexone Injection - Practice Supplied Today F10.20 - Alcohol dependence, uncomplicated Medications: New naltrexone microspheres ER (Vivitrol) 380 mg IM Q4W 1 ea 5RF 30 days Refilled propranolol 20 mg PO BID 180 tabs 0RF 90 days Coding Level of Care Code Est Pt Level 3 (75824) Diagnoses Alcohol use disorder, severe, dependence F10.20
[2024-11-20 11:26] VITALS: PULSE 72; O2SAT 97; BMI 23.5
--- OUTSIDE RECORDS SUMMARY | 2024-11-20 13:19 | XMS_ITS | Clinical Summary ---
Author Organization [facility] it Address [address] [place] [address] Care Team Providers Care Farmworker Bulbs Name Role Phone Talita Alfredo MD Primary Care Pr ovider Allergies No known active allergies Medications hydrOXYzine HCL (ATARAX) 25 mg tablet Take 1 Tablet by mouth every 8 hours as needed for Anxiety. 03/10/2023 Active carBAMazepine XR (TEGretol XR) 200 mg 12 hr tablet Take 1 Tablet by mouth 2 Times Daily. 11/14/2022 Active naltrexone (DEPADE) 50 mg tablet Take 1 Tablet by mouth daily. 12/03/2022 Active glycopyrrolate (ROBINUL) 2 mg tablet Take 1 Tablet by mouth 2 times daily. 12/03/2022 Active Active Problems Problem Noted Date Diagnosed Date Mood swings 08/14/2024 Overview (08/14/2024): and mild depression Dr.Richard Jenkins- Rx with josy 07-22-10: Crisis Services at [facility] after verbal threats to harm self 12: zoloft 07-21-13: on zoloft 07-23- [place] list; Dr. Urbina at [place]- therapist did not take insurance -17: sertraline and clonidine- no therapist- has recommendations but hasn't called ADHD (attention deficit hyperactivity disorder) 08/14/2024 Overview (08/14/2024): Dr.Richard Jenkins- Rx with focalin 09-02-10; partial hosp a month ago- sees Wallace Balbuena in [facility] for therapy and med with Brittanie ding at [facility]. 12-11-11: new therapist since yesterday; med provider Brittanie Ding at [place] 07-21-13: same med provider- no therapist 07-23- no meds for 2 weeks and per pt doing well 2-17: med provider does not feel he has this Last Assessment & Plan: Continue seeing med provider and look into counseling. Hyperlipidemia 03/10/2023 Seizure disorder ([facility] V24, [facility] V28) 09/2022 Passive suicidal ideations 12/03/2022 Hyperhidrosis 12/03/2022 Abnormal EKG 06/04/2022 Tachycardia 06/04/2022 Perceptual disturbances and seizures concurrent with and due to alcohol withdrawal ([facility] V24, [facility] V28) 05/18/2022 Overview (08/14/2024): Patient reported. Last ED visit 04/17/2022, [facility]. Not likely seizure at that time, referred to neurology Marijuana use 05/18/2022 Depression 05/18/2022 Anxiety 05/18/2022 Chronic alcohol abuse 01/24/2020 Chronic benign neutropenia ([facility] V24) 015 Overview (08/14/2024): Referred to hematology -15.seen 08/24, benign neutropenia- often seen in Americans- most often TNC above 1000 and neuts may rise with infection- These pts do not suffer from recurrent infection; F/U PRN Chronic abdominal pain 05/29/2015 Overview (08/14/2024): 05/23 - labs negative, KUB: mild constipation; miralax prescribed and recheck with PCP in one month -17: not often; some constipation Immunizations Name Administration Dates Next Due DTaP (Infanrix) 6wks to less than 7yo ,12/21/1998,1997,10/21,1997 [id number]-[id number] (Pentacel) 2mo to less than 5yo 10/21/1998,1997,1997,08/23 H1N1 Inj Preservative Free 08/30/2009,06/14/2009 HPV 9-valent (Gardisil) 9yo to less than 46yo 09/30/2016,01/28/2016,09/25/2015,07/25 Hepatitis B Pediatric (Enger ix B; Recombivax HB) to less than 20 yo 03/23/1998,1997,1997 IPV Inactivated polio (Ipol) 6wks and older 2001,06/23/1998,1997,08/23 Influenza Quadravalent, MDCK , 0.5ml, preservative free (Flucelvax) 6mo and older 05/21/2022 Influenza trivalent, 0.5mL, preservative free (Fluarix; FluLaval; Fluzone) ages 6mo and older (Afluria) 3 years and older 07/25/2015,07/09/2015,07/24/2014,07/21,08/19/2012,2012,08/13/2011 ,04/21/2011,06/24/2010,08/30/2009,05/09,07/07/2007,07/06/2005 MMR, measles mumps and rubel la Live (Priorix; M-M-R II) 12mo and older 2001,10/21/1998 Meningococcal MCV4P 07/24/2014,08/30/2009 Pneumococcal Conjugate Vacci ne, 7 Valent 04/23/2000,03/17/2000 Td Tetanus diptheria (Tdvax) 7yo and older 03/08/2007 Tdap Tetanus diptheria acell ular pertussis (Boostrix; Adacel) 7yo and older 12/11/2011,07/20/2008 Varicella live (Varivax) 12m o and older 07/20/2008,06/23/1998 Surgical History Surgery Date Site/Laterality Comments TYMPANOSTOMY TUBE PLACEMENT 09/09 PROCEDURE: HISTORICAL PE TUBES Medical History Medical History Date Comments Unspecified otitis media MULTIPLE DX:Unsp ecified otitis media Pneumonia, organism unspecified(486) 12/1997 DX:Pneumonia, organism unspecified(486) Unspecified family circumstance 06/2004 DX:Unspecified family circumstance; COMMENT: DSS ; DCF inquiry 04-02-10- as of 09-02-10- no involvement ( mo had been in program with nervous breakdown); inquiry 04-19 Aortic valve disorders 1`` DX:Aortic valve disorders; COMMENT: Mom not sure of any details- not a current problem (noted at PE11-07) Historical Medical DX DX:ADHD; C OMMENT: Dr.Richard Jenkins- Rx with focalin Mood swings DX:Mood swings; COMMENT: and mild depression Dr.Richard Jenkins- Rx with abilify Fracture of thumb, closed 08/12/2011 DX:Fra cture of thumb, closed; COMMENT: right - Dr. Ferrell Family circumstance 11/2011 DX:Family ci rcumstance; COMMENT: DCF active Neutropenia ([facility]HCC V24) 07/02/2015 DX:Jeremy tropenia (HCC); COMMENT: Referred to hematology 11-15 Chronic benign neutropenia ( CMS/HCC V24) 07/02/2015 DX:Chronic benign neutropeni a (HCC); COMMENT: Referred to hematology 11-15.seen 08/24, benign neutropenia- often seen in Americans- most oftern TNC above 1000 and neuts may rise with infection- These pts do not suffer from recurrent infection Alcohol abuse 01/24/2020 DX:Alcohol abuse Perceptual disturbances and seizures concurrent with and due to alcohol withdrawal (CMS/HCC V24, CMS/HCC V28) 05/18/2022 DX:Perceptual di sturbances and seizures concurrent with and due to alcohol withdrawal ([facility]); COMMENT: Patient reported. Last ED visit 04/17/2022. Not likely seizure at that time, referred to neurology Marijuana use 05/18/2022 DX:Marijuana use Chronic alcohol abuse 01/24/2020 DX:Chronic alcohol abuse Anxiety 05/18/2022 DX:Anxiety Depression 05/18/2022 DX:Depression Generalized anxiety disorder 06/04/2022 DX: Generalized anxiety disorder Alcohol withdrawal seizure ( CMS/HCC V24, CMS/HCC V28) DX:Alcohol withdrawal seizur e ([facility]) Severe anxiety DX:Severe anxiet y Ringworm DX:Ringworm Family History Medical History Relation Name Comments Bipolar disorder Mother sister Diabetes Paternal Grandmother Breast cancer Neg Hx Colon cancer Neg Hx Relation Name Status Comments Father Alive 1963 Mother Alive ASTON- 1965 Paternal Grandmother Sister 1 Alive ANTOINETTE Sister 2 Alive ROSELINE Social History Tobacco Use Types Packs/Day Years Used Date Smoking Tobacco: Some Days Smokeless Tobacco: Never Alcohol Use Standard Drinks/Week Comments Yes 14 (1 standard drink = 0.6 oz pu re alcohol) Sex and Gender Information Value Date Recorded Sex Assigned at Not on file Legal Sex Male 8:40 AM EST Gender Identity Not on file Sexual Orientation Not on file Obstetrics History Last Filed Vital Signs Vital Sign Reading Time Taken Comments Blood Pressure 112/64 07/12/2023 9:46 AM EST Pulse 100 07/12/2023 9:46 AM EST Temperature - - Respiratory Rate - - Oxygen Saturation - - Inhaled Oxygen Concentration - - Weight 74.4 kg (164 lb) 07/12/2023 9:46 AM EST Height 175.3 cm (5' 9 ) 07/12/2023 9:46 AM EST Body Mass Index 24.22 07/12/2023 9:46 AM EST Plan of Treatment Health Maintenance Due Date Last Done Comments Pneumococcal Vaccine: Pediatrics (0 to 5 Years) and At-Risk Patients (6 to 64 Years) (2 of 3 - PPSV23) 06/18/2000 04/23/2000, 03/17/2000 COVID-19 Vaccine (3 - Moderna risk series) 07/12/2021 06/14/2021, 12/25/2020 DTaP,Tdap,and Td Vaccines (8 - Td or Tdap) 12/10/2021 12/11/2011, 07/20/2008, 03/08/2007, Additional history exists Depression Screening 07/18/2022 HIV Screening 07/18/2022 Hepatitis C Screening 07/18/2022 Social Influencers of Health Screening 07/18/2022 Influenza Vaccine (Season Ended) 2025 05/21/2022, 07/25/2015, 07/09/2015, Additional history exists Cholesterol Screening (Lipid Panel) 03/10/2028 03/10/2023 Hepatitis B Vaccines Completed 03/23/1998, 1997, 1997 HIB Vaccines Completed 10/21/1998, 12/07, 1997, Additional history exists IPV Vaccines Completed 2001, 10/07, 06/23/1998, Additional history exists MMR Vaccines Completed 2001, 10/21/1998 Varicella Vaccines Completed 07/20/2008, 06/23/1998 Meningococcal ACWY Vaccine Completed 07/24/2014, HPV Vaccines Completed 09/30/2016, 01/08, 09/25/2015, Additional history exists Hepatitis A Vaccines Aged Out No long er eligible based on patient's age to complete this topic Meningococcal B Vaccine Aged Out No l onger eligible based on patient's age to complete this topic RSV Immunization Patients Under 20 months Aged Out No longer eligible based on patient's age to complete this topic Procedures Procedure Name Priority Date/Time Associated Diagnosis Comments LIPID PANEL Routine 03/10/2023 from Last 3 Months or Most Recently Relevant to Health Maintenance Results * (ABNORMAL) Lipid panel (03/10/2023) LDL/HDL Ratio 2 0 - 4 Triglycerides 164(A) 0 - 150 mg/dL Cholesterol 224(A) 0 - 200 mg/dL HDL 100 >=40 mg/dL LDL Cholesterol 92 0 - 100 mg/dL Blood Venous blood specimen / Unknown Historical Provider LAB BLOOD ORDERABLES Najma l Result from Last 3 Months or Most Recently Relevant to Health Maintenance Care Teams Farmworker Bulbs Relationship Specialty Start Date End Date Talita Alfredo MD [address] [facility], [place] PCP - General Internal Medicine 05/21/22
== END 2024-11-20 12:44 | disposition home or self-care (01) ==
PROVIDERS: PCP Family Medicine; Visit Provider Internal Medicine
DX: F10.20 Alcohol dependence, uncomplicated (principal); Z51.81 Encounter for therapeutic drug level monitoring
CPT/HCPCS: 99213

== ENCOUNTER → 2024-11-20 11:15 | Outpatient (BNVA) | payer OTHER, SELFPAY | PROVIDERS: PCP Family Medicine; Visit Provider Internal Medicine | DX: Z51.81 Encounter for therapeutic drug level monitoring (principal); F10.20 Alcohol dependence, uncomplicated; Z79.899 Other long term (current) drug therapy | CPT/HCPCS: 80307; 96372; 99212; J2315 ==

== ENCOUNTER 2024-12-18 10:43 | Outpatient (AMB) | payer OTHER, SELFPAY ==
--- NOTE | 2024-12-18 11:14 | MHC.AM.SUB ---
Vital Signs 12/18/24 11:15 BP 126/78 Blood Pressure Location Rt brachial Pulse 76 Pulse Source Pulse Oximeter Pulse Oximetry (%) 97 Oxygen Delivery Method Room Air Intake Visit Reasons: Vivitrol Injection Allergies No Known Allergies Allergy (Verified 11/20/24 11:26) HPI HPI Vivitrol Injection: Details: He is doing well. He is not drinking. Review of Systems Const All systems reviewed & are unremarkable except as noted in HPI and below Physical Exam Vital Signs: Last Vital Signs Pulse 76 12/18/24 11:15 BP 126/78 12/18/24 11:15 Pulse Ox 97 12/18/24 11:15 Oxygen Delivery Method Room Air 12/18/24 11:15 Const General: cooperative Office Meds Vivitrol 380 mg intramuscular suspension,extended release Performing Provider: Tuyet Diana MD Performing Location: [facility] Administered by: Tuyet Diana MD on 12/18/24 16:15 Dose Route Admin Location Dispensed Lot Number Expiration Date [facility] Propellant Charge Loader 380 mg IM 380 mg [id number] 05/08/27 15247-209-80 [employer] PFSH Family History Father Lymphoma Mother Thyroid disease Social History Alcohol intake: current Alcohol intake frequency: a few times a week Patient Tobacco Use Status: Never used Tobacco Substance Use Type: Marijuana Assessment & Plan Assessment & Plan (1) Alcohol use disorder, severe, dependence: Comment: He is doing well Code(s): F10.20 - Alcohol dependence, uncomplicated Category: Medical Plan: Continue Vivitrol. See in one month. Counseling prn need. Orders: Orders HIV Ab/Ag Today F10.20 - Alcohol dependence, uncomplicated Syphilis Screen Today F10.20 - Alcohol dependence, uncomplicated T Spot TB Today F10.20 - Alcohol dependence, uncomplicated Hepatitis B Surface Antigen Today F10.20 - Alcohol dependence, uncomplicated Hepatitis C Antibody Today F10.20 - Alcohol dependence, uncomplicated Hepatitis B Surface Ab Qnt Today F10.20 - Alcohol dependence, uncomplicated Hepatitis A IgG Today F10.20 - Alcohol dependence, uncomplicated AMB Naltrexone Injection - Practice Supplied Today F10.20 - Alcohol dependence, uncomplicated Medications: New Vivitrol ER (naltrexone microspheres) 380 mg IM ONCE 1 ea 0RF NS F10.20 - Alcohol dependence, uncomplicated
[2024-12-18 11:15] VITALS: BP 126/78; PULSE 76; O2SAT 97
== END 2024-12-18 11:34 | disposition home or self-care (01) ==
LOC: HO.HCC 10:44
PROVIDERS: PCP Family Medicine; Visit Provider Internal Medicine
DX: F10.20 Alcohol dependence, uncomplicated (principal)
CPT/HCPCS: 99213

== ENCOUNTER → 2024-12-18 10:43 | Outpatient (BNVA) | payer OTHER, SELFPAY | PROVIDERS: PCP Family Medicine; Visit Provider Internal Medicine | DX: F10.20 Alcohol dependence, uncomplicated (principal); Z79.899 Other long term (current) drug therapy | CPT/HCPCS: 96372; 99212; J2315 ==

== ENCOUNTER → 2025-01-15 11:15 | Outpatient (BNVA) | payer OTHER, SELFPAY | PROVIDERS: PCP Family Medicine | DX: Z13.89 Encounter for screening for other disorder (principal) ==

== ENCOUNTER 2025-02-12 09:57 | Outpatient (AMB) | payer OTHER, SELFPAY ==
--- NOTE | 2025-02-12 10:09 | AM.OFFVISNUR ---
Vital Signs 02/12/25 10:12 Height 5 ft 9 in Weight 47.174 kg BMI 15.4 BP 114/68 Blood Pressure Location Lt brachial Pulse 104 H Pulse Source Pulse Oximeter Pulse Oximetry (%) 99 Oxygen Delivery Method Room Air Intake Visit Reasons: Injection Allergies No Known Allergies Allergy (Verified 02/12/25 10:13) Nursing Note Jose A is here for his four week Vivitrol injection and check in. Jose A is alert and oriented x4 and presents with appropriate affect. Jose A still reports anxiety though he feels that it is a little better than it was; he reports anxiety as the main symptom for drinking, not cravings. Jose A states that he has been utilizing mirtazapine during the day for anxiety, though he reports taking the prescribed dose. Jose A said that his current alcohol intake is reduced from three to two beers daily. Jose A was introduced Ana EMPLOYEE WELFARE MANAGER, in hopes of building a therapeutic rapport for future help. Jose A was given a copy of the Vivitrol wallet card print out and the Vivitrol bracelet and chain for injection identification Office Meds Vivitrol 380 mg intramuscular suspension,extended release Performing Provider: Tuyet Diana MD Performing Location: [facility] [place] Administered by: Nicci Rossi RN on 02/12/25 11:09 Dose Route Admin Location Dispensed Lot Number Expiration Date [facility] Reference Test Clerk 380 mg IM RG 380 mg [id number] 06/08/27 63416-350-69 [employer] Total Dispensed Waste 380 mg 0 % Comments: Pt here for 4 week Vivitrol 380 mg injection. Pt denies any concern with previous injections and tolerated injection well. Educated on signs and symptoms of infection and encouraged to call [facility] with any related questions or concerns, pt verbalized understanding. Medication guide given per [facility] protocol. Follow-up scheduled in 4 weeks for next injection. Assessment & Plan Assessment & Plan Orders: Orders AMB Naltrexone Injection Patient Supplied (NC) Today F10.20 - Alcohol dependence, uncomplicated Medications: Discontinued naltrexone microspheres ER (Vivitrol) Discontinued Reason: Patient Completed Course 380 mg IM Q4W 1 ea 0RF Coding
[2025-02-12 10:12] VITALS: BP 114/68; PULSE 104; O2SAT 99; BMI 15.4
--- OUTSIDE RECORDS SUMMARY | 2025-02-12 10:33 | XMS_ITS | Clinical Summary ---
Author Organization [facility] it Address [address] [place] [address] Care Team Providers Care Fresh Work Inspector Name Role Phone Talita Alfredo MD Primary [...] Rx with josy 07-22-10: Crisis Services at [facility] after verbal threats to harm self 12: zoloft 13: on zoloft 07-23- [place] list; Dr. Urbina at [place]- therapist did not take insurance -17: sertraline and clonidine- no therapist- has recommendations but hasn't called ADHD (attention deficit hyperactivity disorder) 08/14/2024 Overview (08/14/2024): Dr.Richard Jenkins- Rx with focalin 09-02-10; partial hosp a month ago- sees Wallace Balbuena in [facility] for therapy and med with Brittanie ding at [facility]. 12-11-11: new therapist since yesterday; med provider Brittanie Ding at [place] 07-21-13: same med provider- no therapist 07-23- no meds for 2 weeks and per pt doing well 2-17: med provider does not feel he has this Last Assessment & Plan: Continue seeing med provider and look into counseling. Hyperlipidemia 03/10/2023 Seizure disorder ([facility] V24, [facility] V28) 09/2022 Passive suicidal ideations 12/03/2022 Hyperhidrosis 12/03/2022 Abnormal EKG 06/04/2022 Tachycardia 06/04/2022 Perceptual disturbances and seizures concurrent with and due to alcohol withdrawal ([facility] V24, [facility] V28) 05/18/2022 Overview (08/14/2024): Patient reported. Last ED visit 04/17/2022, [facility]. Not likely seizure at that time, referred to neurology Marijuana use 05/18/2022 Depression 05/18/2022 Anxiety 05/18/2022 Chronic alcohol abuse 01/24/2020 Chronic benign neutropenia ([facility] V24) 015 Overview (08/14/2024): Referred to hematology [...] (Infanrix) 6wks to less than 7yo ,12/21/1998,1997,10/21,1997 [id number] (Pentacel) 2mo to less than 5yo 10/21/1998,1997,1997,08/23 [...] DX:Family ci rcumstance; COMMENT: DCF active Neutropenia ([facility] V24) 07/02/2015 DX:Jeremy tropenia (HCC); COMMENT: Referred [...] concurrent with and due to alcohol withdrawal ([facility]); COMMENT: Patient reported. Last ED visit 04/17/2022. Not likely seizure at that time, referred to neurology Marijuana use 05/18/2022 DX:Marijuana use Chronic alcohol abuse 01/24/2020 DX:Chronic alcohol abuse Anxiety 05/18/2022 DX:Anxiety Depression 05/18/2022 DX:Depression Generalized anxiety disorder 06/04/2022 DX: Generalized anxiety disorder Alcohol withdrawal seizure ( CMS/HCC V24, CMS/HCC V28) DX:Alcohol withdrawal seizur e ([facility]) Severe anxiety DX:Severe anxiet y Ringworm DX:Ringworm [...] of 3 - PPSV23) 06/18/2000 04/23/2000, 03/17/2000 Hepatitis A Vaccines (1 of 2 - Risk 2-dose series) 2016 COVID-19 Vaccine (3 - Moderna risk series) 07/12/2021 06/14/2021, 12/25/2020 DTaP,Tdap,and Td Vaccines (8 - Td or Tdap) 12/10/2021 12/11/2011, 07/20/2008, 03/08/2007, Additional history exists Depression Screening 07/18/2022 HIV Screening 07/18/2022 Hepatitis C Screening 07/18/2022 Social Influencers of Health Screening 07/18/2022 Influenza Vaccine (#1) 2025 , 07/25/2015, 07/09/2015, Additional history exists Cholesterol Screening (Lipid Panel) 03/10/2028 03/10/2023 Hepatitis B Vaccines Completed 03/23/1998, 1997, 1997 HIB Vaccines Completed 10/21/1998, 12/07, 1997, Additional history exists IPV Vaccines Completed 2001, 10/07, 06/23/1998, Additional history exists MMR Vaccines Completed 2001, 10/21/1998 Varicella Vaccines Completed 07/20/2008, 06/23/1998 Meningococcal ACWY Vaccine Completed 07/24/2014, HPV Vaccines Completed 09/30/2016, 01/08, 09/25/2015, Additional history exists Meningococcal B Vaccine Aged Out No l [...] Recently Relevant to Health Maintenance Care Teams Fresh Work Inspector Relationship Specialty Start Date End Date Talita Alfredo MD [address] [facility], [place] PCP - General Internal Medicine 05/21/22
== END 2025-02-12 10:44 | disposition home or self-care (01) ==
LOC: HO.HCC 09:57
PROVIDERS: PCP Family Medicine
DX: F10.20 Alcohol dependence, uncomplicated (principal)

== ENCOUNTER → 2025-02-12 09:57 | Outpatient (BNVA) | payer OTHER, SELFPAY | PROVIDERS: PCP Family Medicine | DX: F10.20 Alcohol dependence, uncomplicated (principal) | CPT/HCPCS: 96372; J2315 ==

== ENCOUNTER 2025-03-26 10:40 | Outpatient (AMB) | payer OTHER, SELFPAY ==
--- NOTE | 2025-03-26 10:51 | AM.OFFVISNUR ---
Vital Signs 03/26/25 11:14 Height 5 ft 9 in Weight 75.296 kg BMI 24.5 BP 126/76 Blood Pressure Location Lt brachial Position Sitting Pulse 83 Pulse Source Pulse Oximeter Pulse Oximetry (%) 98 Intake Visit Reasons: injection Allergies No Known Allergies Allergy (Verified 03/26/25 11:15) Nursing Note Jose A presents for 4 week Vivitrol injection. Jose A is A&O x4 and presents with appropriate affect. Jose A reports anxiety is relatively the same, utilizing propanolol at appropriate dose, not mirtazapine which he reported at last visit. Jose A is still drinking 1-2 beers daily, he said that when he does not drink he ends up eating all day. Reminded him that he has other options for outside support resources. He agreed to call if he would like any other referrals for therapy or recovery coaching. Follow up in 4 weeks for next injection. Office Meds Vivitrol 380 mg intramuscular suspension,extended release Performing Provider: Tuyet Diana MD Performing Location: [facility] Administered by: Nicci Rossi RN on 03/26/25 11:24 Dose Route Admin Location Dispensed Lot Number Expiration Date [facility] Mobile Home Installer 380 mg IM LG 380 mg [id number] 04/08/27 22789-687-72 [employer] Total Dispensed Waste 380 mg 0 % Comments: Pt is present for 4 week Vivitrol 380 mg injection. Pt denies any concern with previous injections and tolerated injection well. Educated on signs and symptoms of infection and encouraged to call [facility] with any related questions or concerns, pt verbalized understanding. Follow-up scheduled in 4 weeks for next injection. Assessment & Plan Assessment & Plan Orders: Orders AMB Naltrexone Injection Patient Supplied (NC) Today F10.20 - Alcohol dependence, uncomplicated Coding
[2025-03-26 11:14] VITALS: BP 126/76; PULSE 83; O2SAT 98; BMI 24.5
--- OUTSIDE RECORDS SUMMARY | 2025-03-26 11:39 | XMS_ITS | Clinical Summary ---
Author Organization [facility] it Address [address] [place] [address] Care Team Providers Care Field Project Manager Name Role Phone Talita Alfredo MD Primary [...] Rx with josy 07-22-10: [place] [facility] [place] to harm self 12: zoloft 13: on zoloft 07-23- [facility] list; Dr. Urbina at [facility]- therapist did not take insurance -17: sertraline and clonidine- no therapist- has recommendations but hasn't called ADHD (attention deficit hyperactivity disorder) 08/14/2024 Overview (08/14/2024): Dr.Richard Jenkins- Rx with focalin 09-02-10; partial hosp a month ago- sees Wallace Balbuena in [facility] for therapy and med with Brittanie ding at [facility]. 12-11-11: new therapist since yesterday; med provider Brittanie Ding at [facility] 07-21-13: same med provider- no therapist 07-23- no meds for 2 weeks and per pt doing well 2-17: med provider does not feel he has this Last Assessment & Plan: Continue seeing med provider and look into counseling. Hyperlipidemia 03/10/2023 Seizure disorder ([facility] V24, [facility] V28) 09/2022 Passive suicidal ideations 12/03/2022 Hyperhidrosis 12/03/2022 Abnormal EKG 06/04/2022 Tachycardia 06/04/2022 Perceptual disturbances and seizures concurrent with and due to alcohol withdrawal ([facility] V24, [facility] V28) 05/18/2022 Overview (08/14/2024): Patient reported. Last ED visit 04/17/2022, [facility]. Not likely seizure at that time, referred to neurology Marijuana use 05/18/2022 Depression 05/18/2022 Anxiety 05/18/2022 Chronic alcohol abuse 01/24/2020 Chronic benign neutropenia ([facility] V24) 015 Overview (08/14/2024): Referred to hematology [...] (Infanrix) 6wks to less than 7yo ,12/21/1998,1997,10/21,1997 [id number] (Pentacel) 2mo to less than 5yo 10/21/1998,1997,1997,08/23 [...] DX:Family ci rcumstance; COMMENT: DCF active Neutropenia ([facility]/HCC V24) 07/02/2015 DX:Jeremy tropenia (HCC); COMMENT: [...] concurrent with and due to alcohol withdrawal ([facility]); COMMENT: Patient reported. Last ED visit 04/17/2022. Not likely seizure at that time, referred to neurology Marijuana use 05/18/2022 DX:Marijuana use Chronic alcohol abuse 01/24/2020 DX:Chronic alcohol abuse Anxiety 05/18/2022 DX:Anxiety Depression 05/18/2022 DX:Depression Generalized anxiety disorder 06/04/2022 DX: Generalized anxiety disorder Alcohol withdrawal seizure ( CMS/HCC V24, CMS/HCC V28) DX:Alcohol withdrawal seizur e ([facility]) Severe anxiety DX:Severe anxiet y Ringworm DX:Ringworm [...] 5 Years) and At-Risk Patients (6 to 49 Years) (2 of 3 - PPSV23) 06/18/2000 04/23/2000, 03/17/2000 Hepatitis A Vaccines (1 of 2 - Risk 2-dose series) 2016 COVID-19 Vaccine (3 - Moderna risk series) 07/12/2021 06/14/2021, 12/25/2020 DTaP,Tdap,and Td Vaccines (8 - Td or Tdap) 12/10/2021 12/11/2011, 07/20/2008, 03/08/2007, Additional history exists HIV Screening 07/18/2022 Hepatitis C Screening 07/18/2022 Social Influencers of Health Screening 07/18/2022 Depression Screening 08/09/2024 Influenza Vaccine (#1) 2025 , 07/25/2015, 07/09/2015, [...] Recently Relevant to Health Maintenance Care Teams Field Project Manager Relationship Specialty Start Date End Date Talita Alfredo MD [address] [facility], [place] PCP - General Internal Medicine 05/21/22
--- OUTSIDE RECORDS SUMMARY | 2025-03-26 11:40 | XMS_ITS ---
Author Name [facility] Organization Unknown Care Team Organization Name Specialty Phone Email Start Date End Da te [facility] CHERYL MARINO Primary Care [email or web address] 01/15/2023 4 [facility] Sita Luis DO Primary Care 06/16/202203/09 4
== END 2025-03-26 11:44 | disposition home or self-care (01) ==
LOC: HO.HCC 10:40
PROVIDERS: PCP Family Medicine
DX: F10.20 Alcohol dependence, uncomplicated (principal)

== ENCOUNTER → 2025-03-26 10:40 | Outpatient (BNVA) | payer OTHER, SELFPAY | PROVIDERS: PCP Family Medicine | DX: F10.20 Alcohol dependence, uncomplicated (principal) | CPT/HCPCS: 96372; J2315 ==

== ENCOUNTER 2025-04-26 09:58 | Outpatient (AMB) | payer OTHER, SELFPAY ==
--- NOTE | 2025-04-26 10:14 | AM.OFFVISNUR ---
Vital Signs 04/26/25 10:17 Height 5 ft 9 in BP 108/60 Pulse 78 Pulse Oximetry (%) 98 Intake Visit Reasons: Injection Allergies No Known Allergies Allergy (Verified 04/26/25 10:18) Nursing Note Jose A is present today for his q month Vivitrol injection. Jose A reports feeling up and down over the past month and reports that alcohol intake has increased a bit. 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 He is going to return to [employer] and [employer] as an outlet. Offered other theraies, he is not interested. Follow up in 4 weeks for next injection. Office Meds Vivitrol 380 mg intramuscular suspension,extended release Performing Provider: Tuyet Diana MD Performing Location: [facility] Administered by: Nicci Rossi RN on 04/26/25 10:32 Dose Route Admin Location Dispensed Lot Number Expiration Date [facility] Certified Adapted Physical Educator 380 mg IM RG 380 mg 2025-1010T 08/08/27 60857-576-93 [employer] Total Dispensed Waste 380 mg 0 % Comments: Pt is present for Vivitrol injection, pt denies complications with previous injections and tolerated injection well. Pt educated on signs and symptoms of infection at the injection site, urged to call [facility] with any questions or concerns. Follow up appointment made in 4 weeks for next injection. Assessment & Plan Assessment & Plan Orders: Orders AMB Naltrexone Injection Patient Supplied ([place]) Today F10.20 - Alcohol dependence, uncomplicated Coding
[2025-04-26 10:17] VITALS: BP 108/60; PULSE 78; O2SAT 98
--- OUTSIDE RECORDS SUMMARY | 2025-04-26 11:43 | XMS_ITS | Clinical Summary ---
[facility] it Address [address] [place] [address] Care Team Providers Care Tube Drawer Name Role Phone Talita Alfredo MD Primary [...] Rx with josy 07-22-10: Crisis Services at [facility] [place] after verbal threats to harm self 12: zoloft 13: on zoloft 07-23- [facility] list; Dr. Urbina at [facility]- therapist did not take insurance -17: sertraline and clonidine- no therapist- has recommendations but hasn't called ADHD (attention deficit hyperactivity disorder) 08/14/2024 Overview (08/14/2024): Dr.Richard Jenkins- Rx with focalin 09-02-10; partial hosp a month ago- sees Wallace Balbuena in [facility] for therapy and med with Brittanie ding at [facility]. 12-11-11: new therapist since yesterday; med provider Brittanie Ding at [place] 07-21-13: same med provider- no therapist 07-23- no meds for 2 weeks and per pt doing well 2-17: med provider does not feel he has this Last Assessment & Plan: Continue seeing med provider and look into counseling. Hyperlipidemia 03/10/2023 Seizure disorder ([facility] V24, [facility] V28) 09/2022 Passive suicidal ideations 12/03/2022 Hyperhidrosis 12/03/2022 Abnormal EKG 06/04/2022 Tachycardia 06/04/2022 Perceptual disturbances and seizures concurrent with and due to alcohol withdrawal ([facility] V24, [facility] V28) 05/18/2022 Overview (08/14/2024): Patient reported. Last ED visit 04/17/2022, [facility]. Not likely seizure at that time, referred to neurology Marijuana use 05/18/2022 Depression 05/18/2022 Anxiety 05/18/2022 Chronic alcohol abuse 01/24/2020 Chronic benign neutropenia ([facility] V24) 015 Overview (08/14/2024): Referred to hematology [...] (Infanrix) 6wks to less than 7yo ,12/21/1998,1997,10/21,1997 [id number] (Pentacel) 2mo to less than 5yo 10/21/1998,1997,1997,08/23 [...] DX:Family ci rcumstance; COMMENT: DCF active Neutropenia ([facility] V24) 07/02/2015 DX:Jeremy tropenia (HCC); COMMENT: [...] concurrent with and due to alcohol withdrawal ([facility]); COMMENT: Patient reported. Last ED visit 04/17/2022. Not likely seizure at that time, referred to neurology Marijuana use 05/18/2022 DX:Marijuana use Chronic alcohol abuse 01/24/2020 DX:Chronic alcohol abuse Anxiety 05/18/2022 DX:Anxiety Depression 05/18/2022 DX:Depression Generalized anxiety disorder 06/04/2022 DX: Generalized anxiety disorder Alcohol withdrawal seizure ( CMS/HCC V24, CMS/HCC V28) DX:Alcohol withdrawal seizur e ([facility]) Severe anxiety DX:Severe anxiet y Ringworm DX:Ringworm [...] Recently Relevant to Health Maintenance Care Teams Tube Drawer Relationship Specialty Start Date End Date Talita Alfredo MD [address] [facility], [place] PCP - General Internal Medicine 05/21/22
== END 2025-04-26 11:00 | disposition home or self-care (01) ==
LOC: HO.HCC 09:58
PROVIDERS: PCP Family Medicine
DX: F10.20 Alcohol dependence, uncomplicated (principal)

== ENCOUNTER → 2025-04-26 09:58 | Outpatient (BNVA) | payer OTHER, SELFPAY | PROVIDERS: PCP Family Medicine | DX: F10.20 Alcohol dependence, uncomplicated (principal); Z79.899 Other long term (current) drug therapy | CPT/HCPCS: 96372; J2315 ==

== ENCOUNTER 2025-05-23 10:00 | Outpatient (AMB) | payer OTHER, SELFPAY ==
--- NOTE | 2025-05-23 07:58 | AM.OFFVISNUR ---
Vital Signs 05/23/25 10:06 BP 126/76 Pulse 62 Pulse Oximetry (%) 97 Intake Visit Reasons: MAT Allergies No Known Allergies Allergy (Verified 05/23/25 10:07) Nursing Note Jose A is present today for his q month Vivitrol injection. Jose A reports feeling up and down over the past month and reports that alcohol intake has increased a bit, 3 large beers at a time like 3 days a week, discussed reduction to 2 when he does drink. Jose A reports no change to high levels of anxiety, still utilizing propanolol as prescribed -no overuse, will think about a therapy referral; has started painting again- encouraged continued creative outlet. Follow-up in 4 weeks for the next injection. Office Meds Vivitrol 380 mg intramuscular suspension,extended release Performing Provider: Tuyet Diana MD Performing Location: [facility] Administered by: Nicci Rossi RN on 05/23/25 10:34 Dose Route Admin Location Dispensed Lot Number Expiration Date [facility] Home Appliance Installer 380 mg IM LG 380 mg 2025-1023T 10/07/27 48083-074-50 [employer] Total Dispensed Waste 380 mg 0 % Comments: Pt is present for Vivitrol injection, pt denies complications with previous injections and tolerated injection well. Pt educated on signs and symptoms of infection at the injection site, urged to call [facility] with any questions or concerns. Follow up appointment made in 4 weeks for next injection. Assessment & Plan Assessment & Plan Orders: Orders AMB Naltrexone Injection Patient Supplied ([place]) Today F10.20 - Alcohol dependence, uncomplicated Coding
[2025-05-23 10:06] VITALS: BP 126/76; PULSE 62; O2SAT 97
--- OUTSIDE RECORDS SUMMARY | 2025-05-23 11:45 | XMS_ITS | Clinical Summary ---
[facility] it Address [address] [place] [address] Care Team Providers Care Bar Examiner Name Role Phone Talita Alfredo MD Primary [...] Rx with josy 07-22-10: Crisis Services at [facility] [place] after verbal threats to harm self 12: zoloft 07-21-13: on zoloft 07-23- [facility] list; Dr. Urbina at [facility]- therapist did not take insurance -17: sertraline and clonidine- no therapist- has recommendations but hasn't called ADHD (attention deficit hyperactivity disorder) 08/14/2024 Overview (08/14/2024): Dr.Richard Jenkins- Rx with focalin 09-02-10; partial hosp a month ago- sees Wallace Balbuena in [facility] for therapy and med with Brittanie ding at [facility]. 12-11-11: new therapist since yesterday; med provider Brittanie Ding at [place] 07-21-13: same med provider- no therapist 07-23- no meds for 2 weeks and per pt doing well 2-17: med provider does not feel he has this Last Assessment & Plan: Continue seeing med provider and look into counseling. Hyperlipidemia 03/10/2023 Seizure disorder ([facility] V24, [facility] V28) 09/2022 Passive suicidal ideations 12/03/2022 Hyperhidrosis 12/03/2022 Abnormal EKG 06/04/2022 Tachycardia 06/04/2022 Perceptual disturbances and seizures concurrent with and due to alcohol withdrawal ([facility] V24, [facility] V28) 05/18/2022 Overview (08/14/2024): Patient reported. Last ED visit 04/17/2022, [facility]. Not likely seizure at that time, referred to neurology Marijuana use 05/18/2022 Depression 05/18/2022 Anxiety 05/18/2022 Chronic alcohol abuse 01/24/2020 Chronic benign neutropenia ([facility] V24) 015 Overview (08/14/2024): Referred [...] month -17: not often; some constipation Immunizations Immunization Administration Dates Next Due DTaP (Infanrix) 6wks to less than 7yo ,12/21/1998,1997,10/21,1997 [id number] (Pentacel) 2mo to less than 5yo 10/21/1998,1997,1997,08/23 [...] DX:Family ci rcumstance; COMMENT: DCF active Neutropenia ([facility]/HCC V24) 07/02/2015 DX:Jeremy tropenia (HCC); COMMENT: [...] concurrent with and due to alcohol withdrawal ([facility]); COMMENT: Patient reported. Last ED visit 04/17/2022. Not likely seizure at that time, referred to neurology Marijuana use 05/18/2022 DX:Marijuana use Chronic alcohol abuse 01/24/2020 DX:Chronic alcohol abuse Anxiety 05/18/2022 DX:Anxiety Depression 05/18/2022 DX:Depression Generalized anxiety disorder 06/04/2022 DX: Generalized anxiety disorder Alcohol withdrawal seizure ( CMS/HCC V24, CMS/HCC V28) DX:Alcohol withdrawal seizur e ([facility]) Severe anxiety DX:Severe anxiet y [...] to 49 Years) (2 of 3 - PPSV23, PCV20, or PCV21) 06/18/2000 04/23/2000, 03/17/2000 Hepatitis A Vaccines (1 [...] exists Cholesterol Screening (Lipid Panel) 03/10/2028 03/10/2023 RSV Immunization Adult Patients (1 - 1-dose 75+ series) 2072 Hepatitis B Vaccines Completed 03/23/1998, 1997, 1997 [...] mg/dL Blood Venous blood specimen / Unknown us Historical Provider LAB BLOOD ORDERABLES Najma l Result from Last 3 Months or Most Recently Relevant to Health Maintenance Care Teams Bar Examiner Relationship Specialty Start Date End Date Talita Alfredo MD [address] [facility] [place], [place] PCP - General Internal Medicine 05/21/22
== END 2025-05-23 10:35 | disposition home or self-care (01) ==
LOC: HO.HCC 10:00
PROVIDERS: PCP Family Medicine
DX: F10.20 Alcohol dependence, uncomplicated (principal)

== ENCOUNTER → 2025-05-23 10:00 | Outpatient (BNVA) | payer OTHER, SELFPAY | PROVIDERS: PCP Family Medicine | DX: F10.20 Alcohol dependence, uncomplicated (principal) | CPT/HCPCS: 96372; J2315 ==

== ENCOUNTER 2025-06-25 11:04 | Outpatient (AMB) | payer OTHER, SELFPAY ==
--- NOTE | 2025-06-25 11:01 | AM.OFFVISNUR ---
Vital Signs 06/25/25 11:06 BP 128/70 Pulse 56 Pulse Oximetry (%) 97 Intake Visit Reasons: Injection Allergies No Known Allergies Allergy (Verified 06/25/25 11:09) Nursing Note Jose A is present today for his q month Vivitrol injection. Jose A is A&O x4, cooperative and presents with appropriate affect. Jose A reports anxiety is relatively the same; two beers daily on average. Reinforced meeting for counseling, still contemplating. 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 He does report increased anxiety related to his birthday which is recurrent. Follow up in 4 weeks for the next injection. Office Meds Vivitrol 380 mg intramuscular suspension,extended release Performing Provider: Tuyet Diana MD Performing Location: [facility] Administered by: Nicci Rossi RN on 06/25/25 11:39 Dose Route Admin Location Dispensed Lot Number Expiration Date [facility] Finance Mgr 380 mg IM RG 380 mg [id number] 08/08/27 94571-216-91 [employer] Total Dispensed Waste 380 mg 0 % Comments: Pt is present for Vivitrol injection, pt denies complications with previous injections and tolerated injection well. Pt educated on signs and symptoms of infection at the injection site, urged to call [facility] with any questions or concerns. Follow up appointment made in 4 weeks for next injection. Assessment & Plan Assessment & Plan Orders: Orders AMB Naltrexone Injection Patient Supplied (NC) Today F10.20 - Alcohol dependence, uncomplicated Coding
[2025-06-25 11:06] VITALS: BP 128/70; PULSE 56; O2SAT 97
== END 2025-06-25 11:41 | disposition home or self-care (01) ==
LOC: HO.HCC 11:04
PROVIDERS: PCP Family Medicine
DX: F10.20 Alcohol dependence, uncomplicated (principal)

== ENCOUNTER → 2025-06-25 11:04 | Outpatient (BNVA) | payer OTHER, SELFPAY | PROVIDERS: PCP Family Medicine | DX: F10.20 Alcohol dependence, uncomplicated (principal) | CPT/HCPCS: 96372; J2315 ==

== ENCOUNTER 2025-07-25 09:54 | Outpatient (AMB) | payer OTHER, SELFPAY ==
--- NOTE | 2025-07-25 10:02 | AM.OFFVISNUR ---
Vital Signs 07/25/25 10:05 BP 128/78 Pulse 122 H Pulse Oximetry (%) 98 Intake Visit Reasons: Injection Allergies No Known Allergies Allergy (Verified 07/25/25 10:06) Nursing Note Jose A is present today for his q month Vivitrol injection. Jose A is A&O x4, cooperative and presents with appropriate affect. Jose A reports struggling this time every (around birthday). 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 He mentioned previous staff initiated a call to [facility] on his behalf and he has not reached out in approximately a year; Jose A requested that [facility] reach out for infomation on their waitlist. Jose A was also interested in [facility] AA meetings and was given the information of a meeting in [place] that he plans to attend. Jose A requested po naltrexone refill for prn use-provider notified. Follow up in 4 weeks for the next injection. Office Meds Vivitrol 380 mg intramuscular suspension,extended release Performing Provider: Tuyet Diana MD Performing Location: [facility] Administered by: Nicci Rossi RN on 07/25/25 10:44 Dose Route Admin Location Dispensed Lot Number Expiration Date [facility] Train Dispatcher 380 mg IM LG 380 mg [id number] 07/25/25 82805-777-56 [employer] Total Dispensed Waste 380 mg 0 % Comments: Pt is present for Vivitrol injection, pt denies complications with previous injections and tolerated injection well. Pt educated on signs and symptoms of infection at the injection site, urged to call [facility] with any questions or concerns, pt verbalized understanding. Follow up appointment made in 4 weeks for next injection. Assessment & Plan Assessment & Plan Orders: Orders AMB Naltrexone Injection - Practice Supplied Today F10.20 - Alcohol dependence, uncomplicated Coding
[2025-07-25 10:05] VITALS: BP 128/78; PULSE 122; O2SAT 98
--- OUTSIDE RECORDS SUMMARY | 2025-07-25 11:51 | XMS_ITS | Clinical Summary ---
Author Organization [facility] it Address [address] [place] [address] Care Team Providers Care Electric Fan Assembler Name Role Phone Talita Alfredo MD Primary [...] Rx with josy 07-22-10: [place] [facility] [place] verbal threats to harm self 12-11-11: zoloft 07-21-13: on zoloft 07-23- [place] list; Dr. Urbina at [place]- therapist did not take insurance -17: sertraline and clonidine- no therapist- has recommendations but hasn't called ADHD (attention deficit hyperactivity disorder) 08/14/2024 Overview (08/14/2024): Dr.Richard Jenkins- Rx with focalin 09-02-10; partial hosp a month ago- sees Wallace Balbuena in [facility] for therapy and med with Brittanie ding at [facility]. 12-11-11: new therapist since yesterday; med provider Brittanie Ding at [place] 07-21-13: same med provider- no therapist 07-23- no meds for 2 weeks and per pt doing well 2-17: med provider does not feel he has this Last Assessment & Plan: Continue seeing med provider and look into counseling. Hyperlipidemia 03/10/2023 Seizure disorder 03/10/2023 Passive suicidal ideations 12/03/2022 Hyperhidrosis 12/03/2022 Abnormal EKG 06/04/2022 Tachycardia 06/04/2022 Perceptual disturbances and seizures concurrent with and due to alcohol withdrawal 05/18/2022 Overview (08/14/2024): Patient reported. Last ED visit 04/17/2022, [facility]. Not likely seizure at that time, referred to neurology Marijuana use 05/18/2022 Depression 05/18/2022 Anxiety 05/18/2022 Chronic alcohol abuse 01/24/2020 Chronic benign neutropenia 07/02/2015 Overview (08/14/2024): Referred to hematology -.seen 08/24, benign neutropenia- often seen in [place]- most often TNC above 1000 and neuts may rise with infection- These pts do not suffer from recurrent infection; F/U PRN Chronic abdominal pain 05/29/2015 Overview (08/14/2024): 05/23 - labs negative, KUB: mild constipation; miralax prescribed and recheck with PCP in one month 2-17: not often; some constipation Immunizations Immunization Administration Dates Next Due DTaP (Infanrix) 6wks to less than 7yo ,12/21/1998,1997,10/21,1997 [id number] (Pentacel) 2mo to less than 5yo 10/21/1998,1997,1997,08/23 [...] DX:Family ci rcumstance; COMMENT: DCF active Neutropenia (CMS/HCC V24) 07/02/2015 DX:Jeremy tropenia (HCC); COMMENT: Referred to hematology 11- Chronic benign neutropenia ( CMS/HCC V24) 07/02/2015 DX:Chronic benign neutropeni a (HCC); COMMENT: Referred to hematology 11-.seen 08/24, benign neutropenia- often seen in [place]- most oftern TNC above 1000 and neuts may rise with infection- These pts do not suffer from recurrent infection Alcohol abuse 01/24/2020 DX:Alcohol abuse Perceptual disturbances and seizures concurrent with and due to alcohol withdrawal (CMS/HCC V24, CMS/HCC V28) 05/18/2022 DX:Perceptual di sturbances and seizures concurrent with and due to alcohol withdrawal ([facility]); COMMENT: Patient reported. Last ED visit 04/17/2022. Not likely seizure at that time, referred to neurology Marijuana use 05/18/2022 DX:Marijuana use Chronic alcohol abuse 01/24/2020 DX:Chronic alcohol abuse Anxiety 05/18/2022 DX:Anxiety Depression 05/18/2022 DX:Depression Generalized anxiety disorder 06/04/2022 DX: Generalized anxiety disorder Alcohol withdrawal seizure ( CMS/HCC V24, CMS/HCC V28) DX:Alcohol withdrawal seizur e ([facility]) Severe anxiety DX:Severe anxiet y Ringworm DX:Ringworm [...] on file Sexual Orientation Not on file Last Filed Vital Signs Vital Sign Reading [...] Recently Relevant to Health Maintenance Care Teams Electric Fan Assembler Relationship Specialty Start Date End Date Talita Alfredo MD [address] [place], [place] PCP - General Internal Medicine 05/21/22
== END 2025-07-25 10:52 | disposition home or self-care (01) ==
LOC: HO.HCC 09:54
PROVIDERS: PCP Family Medicine
DX: F10.20 Alcohol dependence, uncomplicated (principal)

== ENCOUNTER → 2025-07-25 09:54 | Outpatient (BNVA) | payer OTHER, SELFPAY | PROVIDERS: PCP Family Medicine | DX: F10.20 Alcohol dependence, uncomplicated (principal) | CPT/HCPCS: 96372; J2315 ==